=== PATIENT | female | born 1955 | race Caucasian/White ===

== ENCOUNTER 2016-05-14 06:56 | Day surgery (SDC) | payer OTHER ==
[2016-05-09 13:39] VITALS: BMI 48.3
[~2016-05-14 06:56] MED LIST: LACTATED RINGERS 1,000 ML IV SCH; LIDOCAINE 1% 20 ML VIAL (10MG/ML) FOR IV START INTRADERMA PRN
[2016-05-14 07:16] VITALS: RESP 18; TEMP 97.3
[2016-05-14] MEDS ORDERED: LACTATED RINGERS 1,000 ML IV ONE (07:18)
[2016-05-14 07:28] LABS: Glucose,Whole Blood 123 mg/dL (75-99)
[2016-05-14] MEDS ORDERED: PROPOFOL 10 MG/ML 20 ML VIAL IV ONE (07:40)
--- NOTE | 2016-05-14 07:46 | P.GSHP ---
History of Present Illness H&P Date: 05/14/16 Chief Complaint: Screening colonoscopy This is a 52-year-old female who presents today for screening colonoscopy. She' s never had a colonoscopy performed before. She denies any significant GI complaints. - Constitutional Constitutional: Reports as per HPI Past Medical History Past Medical History: Diabetes Mellitus, Hyperlipidemia, Hypertension, Thyroid Disorder Additional Past Medical History / Comment(s): degenerative disc disease, pinched nerve in neck radiating down back, neuropathy hands, pt states has spot on her kidney that is being monitored History of Any Multi-Drug Resistant Organisms: None Reported Past Surgical History: Orthopedic Surgery Additional Past Surgical History / Comment(s): lt knee surgery Past Anesthesia/Blood Transfusion Reactions: No Reported Reaction Smoking Status: Former smoker Past Alcohol Use History: None Reported Additional Past Alcohol Use History / Comment(s): smoked 20 years <1ppd quit 20 years ago Past Drug Use History: None Reported - Past Family History Mother Family Medical History: No Reported History Medications and Allergies Home Medications Medication Instructions Recorded Confirmed Type Aspirin [Adult Low Dose Aspirin EC] 81 mg PO DAILY 05/09/16 05/09/16 History Gabapentin 600 mg PO TID 05/09/16 05/09/16 History Levothyroxine Sodium [Synthroid] 125 mcg PO DAILY 05/09/16 05/09/16 History Losartan [Cozaar] 50 mg PO DAILY 05/09/16 05/09/16 History Simvastatin [Zocor] 20 mg PO HS 05/09/16 05/09/16 History metFORMIN HCL 1,000 mg PO BID 05/09/16 05/09/16 History Allergies Allergy/AdvReac Type Severity Reaction Status Date / Time No Known Allergies Allergy Verified 05/09/16 13:12 Surgical - Exam Vital Signs Temp Pulse Resp BP Pulse Ox 97.3 F L 100 18 152/96 94 L 05/14/16 07:15 05/14/16 07:15 05/14/16 07:15 05/14/16 07:15 05/14/16 07:15 - General well developed, no distress - Eyes PERRL - ENT normal pinna - Neck no masses - Respiratory normal expansion - Cardiovascular Rhythm: regular - Abdomen Abdomen: soft, non tender Results - Labs Abnormal Lab Results - Last 24 Hours (Table) 05/14/16 Range/Units 07:18 POC Glucose (mg/dL) 123 H (75-99) mg/dL Assessment and Plan Plan: We'll perform screening colonoscopy.
--- NOTE | 2016-05-14 08:00 | P.OP ---
Date of Procedure: 05/14/16 Preoperative Diagnosis: Screening colonoscopy Postoperative Diagnosis: Mild diverticulosis Right colon submucosal lipoma Procedure(s) Performed: Colonoscopy Anesthesia: MAC Surgeon: Stewart Castellanos Pathology: other (Right colon lipoma) Condition: stable Disposition: PACU Description of Procedure: The patient's placed on the endoscopy table lateral position. She received IV sedation. Digital rectal exam was performed which revealed no abnormalities. The flexible colonoscope was then placed patient anus and passed throughout the entire colon. The ileocecal valve was visualized. The cecum appeared normal. In the right colon there was a small submucosal lipoma. This area is biopsied. The remainder of the right colon appeared normal. The transverse colon was normal. Scope was then brought back and the descending and sigmoid colon and there was a few scattered diverticula. Scope was then brought back the rectum and this appeared normal. Scope was withdrawn for patient.
[2016-05-14 08:43] VITALS: BP 136/91; PULSE 70
== END 2016-05-14 08:48 | disposition home or self-care (01) ==
LOC: ORWHC2ENDO 06:56
PROVIDERS: ATTEND Surgery
DX: Z12.11 Encounter for screening for malignant neoplasm of colon (principal); D17.5 Benign lipomatous neoplasm of intra-abdominal organs; K57.30 Diverticulosis of large intestine without perforation or abscess without bleeding; I10 Essential (primary) hypertension; E11.9 Type 2 diabetes mellitus without complications; E07.9 Disorder of thyroid, unspecified; G62.9 Polyneuropathy, unspecified; E66.01 Morbid (severe) obesity due to excess calories; Z79.84 Long term (current) use of oral hypoglycemic drugs; Z79.82 Long term (current) use of aspirin; Z79.899 Other long term (current) drug therapy; Z87.891 Personal history of nicotine dependence
CPT/HCPCS: 88305; 45380; J2704

== ENCOUNTER → 2017-04-22 | Outpatient (CLI) | payer OTHER ==
[2017-04-22 15:58] LABS: Blood Urea Nitrogen 19 mg/dL (7-17)
--- NOTE | 2017-04-22 23:10 | MR ---
EXAMINATION TYPE: MR cande/lspine wo con DATE OF EXAM: 04/22/2017 COMPARISON: NONE HISTORY: Cervicalgia and lumbago per order. Headaches with pain into shoulders and neck causing pain or weakness in both arms and fingers for 2 years per patient. Low back pain that travels down legs fo r over 3 years per patient. TECHNIQUE: Multiplanar, multisequence imaging of the cervical and lumbar spine are both performed wit hout IV contrast. FINDINGS: C-SPINE: FINDINGS: Sagittal images of the cervical spine show the craniocervical junction to appear within nor mal limits. The cervical and upper thoracic spinal cord is normal in course, caliber, and signal. Th ere is generalized AP diameter canal narrowing noted presumed congenital. Vertebral alignment is str aightened. The vertebral body heights are normal. There is mild to moderate disc space narrowing C4- C5 and C5-C6 levels. Posterior disc herniation C6-C7 level most probably effaces anterior thecal sac and sagittal images. Some heterogeneous Modic type II endplate changes are seen anterior lower cervic al levels with mild anterior spurring. Axial images show the C2-C3 level to appear within normal limits. Axial images at C3-C4 level broad-based spur disc complex mildly effacing anterior thecal sac and cau sing mild to moderate left greater than right neural foraminal narrowing. Axial images at C4-C5 level showed broad based right paracentral disc protrusion effacing anterolater al thecal sac nearly up to ventral surface of spinal cord with some uncovertebral facet arthropathy c ausing moderate to advanced bilateral neural foraminal narrowing. Axial images at C5-C6 level show lobulated broad-based paracentral disc protrusion facing anterior th ecal sac and causing advanced bilateral neural foraminal narrowing. Axial images at C6-C7 level show broad-based right paracentral disc protrusion effacing the anterior thecal sac and causing mild to moderate right greater than left neural foraminal narrowing. Axial images at C7-T1 level are felt within normal limits. IMPRESSION: Straightening of cervical spine with multilevel degenerative changes seen as detailed abo ve. L-SPINE: Sagittal images of the lumbar spine show vertebral body heights and alignment to appear satisfactory. Multilevel disc desiccation is seen. There is vacuum disc phenomenon with mild to moderate disc spac e narrowing L2-L3 level. There is moderate to advanced disc space narrowing with vacuum disc phenome non L4-L5 and L5-S1 levels. Posterior disc herniations are seen at these levels on sagittal images. T here is increased signal posteriorly consistent with annular tear L3-L4 level. The conus medullaris i s normal in position and signal ending at mid L1 level. There are heterogeneous endplate changes lowe r lumbar levels as well as anterior and posterior L2-L3 level. There is mild to moderate multilevel a nterior spurring. Axial images show the T12-L1 level to appear within normal limits. Axial images at the L1-L2 level shows small right foraminal disc protrusion but the bilateral neural foramina are patent. Spinal canal is preserved. Axial images at L2-L3 level show mild facet degenerative changes bilaterally with bilateral foraminal disc protrusions causing mild to moderate bilateral neural foraminal narrowing. Axial images at L3-L4 level broad-based posterior disc protrusion and mild facet degenerative changes bilaterally. There is mild bilateral neural foraminal narrowing and mild effacement of anterior thec al sac. Axial images at L4-L5 level shows moderate facet degenerative changes and ligament hypertrophy. There is broad-based posterior disc protrusion effacing anterior thecal sac. There is severe right and mil d to moderate left-sided neural foraminal narrowing. Encroachment on right L4 nerve is seen sagittal image 9. Axial images at L5-S1 level show moderate to advanced facet degenerative changes bilaterally. There i s focal right paracentral disc protrusion. There is mild bilateral anterior inferior neural foraminal narrowing. No suspicious retroperitoneal findings are seen. IMPRESSION: Straightening of lumbar spine with multilevel degenerative changes as detailed above. Att ention to L4-L5 level where encroachment on right L4 nerve is felt present.
--- NOTE | 2017-04-22 23:11 | MR ---
EXAMINATION TYPE: MR brain wo/w con DATE OF EXAM: 04/22/2017 COMPARISON: NONE HISTORY: Headache unusual duration per order. Recurring migraine headaches with right-sided hearing l oss per patient. TECHNIQUE: Multiplanar, multisequence images of the brain and brainstem is performed without and with IV contras t, utilizing 12.5 mL intravenous Gadavist . FINDINGS: Diffusion weighted images demonstrate no evidence of a recent infarct or other diffusion ab normality. There is no extra-axial fluid collection or significant white matter signal abnormality. The ventricular system and cisternal spaces are normal in size and appearance. The brain volume is age appropriate. Midline structures demonstrate normal morphology. The craniocervical junction appears within normal limits. Post contrast images demonstrate no abnormal enhancement. The dural venous sinuses appear pa tent. The visualized sinuses are clear and the globes are intact. IMPRESSION: Unremarkable study. No significant finding is seen to account for patient's symptoms.
== END | disposition home or self-care (01) ==
LOC: RADMRIMAIN 15:13
PROVIDERS: ATTEND Psychiatry & Neurology Pain Medicine
DX: M47.816 Spondylosis without myelopathy or radiculopathy, lumbar region (principal); M40.56 Lordosis, unspecified, lumbar region; M47.812 Spondylosis without myelopathy or radiculopathy, cervical region; R51 Headache
CPT/HCPCS: 82565; 84520; 70553; 72141; 72148; 36415; A9581

== ENCOUNTER → 2017-09-29 | Outpatient (CLI) | payer OTHER ==
--- NOTE | 2017-09-30 13:40 | MM ---
Reason for exam: screening (asymptomatic). History: Patient is nulliparous. Physical Findings: A clinical breast exam by your physician is recommended on an annual basis and results should be correlated with mammographic findings. MG Screening Mammo w CAD Bilateral CC and MLO view(s) were taken. No prior studies available for comparison. There are scattered fibroglandular densities. There is no discrete abnormality. No significant changes when compared with prior studies. ASSESSMENT: Negative, BI-RAD 1 RECOMMENDATION: Routine screening mammogram of both breasts in 1 year.
== END | disposition home or self-care (01) ==
LOC: RADMAMWWP 08:00
PROVIDERS: ATTEND Internal Medicine
DX: Z12.31 Encounter for screening mammogram for malignant neoplasm of breast (principal)
CPT/HCPCS: 77067

== ENCOUNTER → 2018-09-30 | Outpatient (CLI) | payer OTHER ==
--- NOTE | 2018-09-30 10:27 | XR ---
EXAMINATION TYPE: XR chest 2V DATE OF EXAM: 09/30/2018 COMPARISON: NONE HISTORY: Chest pain TECHNIQUE: Frontal and lateral views of the chest are obtained. FINDINGS: There is no focal air space opacity. No evidence for pneumothorax. No pleural effusion. The cardiac silhouette size is within normal limits. The osseous structures are grossly intact. IMPRESSION: 1. No acute cardiopulmonary process.
== END | disposition home or self-care (01) ==
LOC: RADXRMAIN 10:07
PROVIDERS: ATTEND Internal Medicine
DX: R06.02 Shortness of breath (principal)
CPT/HCPCS: 71046

== ENCOUNTER → 2018-10-23 | Outpatient (CLI) | payer OTHER ==
--- NOTE | 2018-10-23 13:35 | US ---
EXAMINATION TYPE: US venous doppler duplex LE DATE OF EXAM: 10/23/2018 1:13 PM COMPARISON: NONE CLINICAL HISTORY: M79.662,M79.661 PAIN NATHANIEL LOWER EXTREMITIES. Charly horses in bilateral calfs SIDE PERFORMED: Bilateral TECHNIQUE: The lower extremity deep venous system is examined utilizing real time linear array sonog ernesto with graded compression, doppler sonography and color-flow sonography. VESSELS IMAGED: External Iliac Vein (EIV) Common Femoral Vein Deep Femoral Vein Greater Saphenous Vein * Femoral Vein Popliteal Vein Small Saphenous Vein * Proximal Calf Veins (* superficial vessels) Grayscale, color doppler, spectral doppler imaging performed of the deep veins of the lower extremiti es. There is normal flow, compressibility, vascular waveforms. Right Leg: Negative for DVT Left Leg: Negative for DVT IMPRESSION: No sonographic evidence of deep venous thrombosis within either lower extremity.
== END | disposition home or self-care (01) ==
LOC: RADUSWWP 12:39
PROVIDERS: ATTEND Internal Medicine
DX: M79.661 Pain in right lower leg (principal); M79.662 Pain in left lower leg
CPT/HCPCS: 93970

== ENCOUNTER → 2018-11-03 | Outpatient (CLI) | payer OTHER ==
--- NOTE | 2018-11-04 08:31 | ECHOF ---
Referral Reason:R06.02 Shortness of Breath MEASUREMENTS -------- HEIGHT: 160.0 cm WEIGHT: 112.0 kg BP: RVIDd: 3.0 cm (< 3.3) IVSd: 1.2 cm (0.6 - 1.1) LVIDd: 4.4 cm (3.9 - 5.3) LVPWd: 1.2 cm (0.6 - 1.1) IVSs: 1.7 cm LVIDs: 2.7 cm LVPWs: 1.7 cm LAESV Index (A-L): 23.20 ml/m Ao Diam: 2.9 cm (2.0 - 3.7) AV Cusp: 1.9 cm (1.5 - 2.6) LA Diam: 4.2 cm (2.7 - 3.8) EPSS: 0.6 cm MV E Cornell: 0.79 m/s MV DecT: 166 ms MV A Cornell: 0.88 m/s MV E/A Ratio: 0.90 RAP: 5.00 mmHg RVSP: 43.06 mmHg MV EF SLOPE: 130.66 mm/s (70 - 150) MV EXCURSION: 1.59 cm (> 18.000) FINDINGS -------- Sinus rhythm. This was a technically adequate study. The left ventricular size is normal. There is mild concentric left ventricular hypertrophy. Overa ll left ventricular systolic function is normal with, an EF between 55 - 60 %. The diastolic fillin g pattern is normal for the age of the patient. The right ventricle is normal in size. Left atrium is normal size by volume. The right atrial size is normal. Interatrial and interventricular septum intact. There is no evidence of aortic regurgitation. There is no evidence of aortic stenosis. There is trace mitral regurgitation. [id number] tricuspid regurgitation present. There is moderate pulmonary hypertension. The r ight ventricular systolic pressure, as measured by Doppler, is 43.06mmHg. Trace/mild (physiologic) pulmonic regurgitation. The aortic root size is normal. The inferior vena cava is mildly dilated. There is no pericardial effusion. CONCLUSIONS -------- 1. Sinus rhythm. 2. This was a technically adequate study. 3. The left ventricular size is normal. 4. There is mild concentric left ventricular hypertrophy. 5. Overall left ventricular systolic function is normal with, an EF between 55 - 60 %. 6. The diastolic filling pattern is normal for the age of the patient. 7. The right ventricle is normal in size. 8. Left atrium is normal size by volume. 9. The right atrial size is normal. 10. Interatrial and interventricular septum intact. 11. There is no evidence of aortic regurgitation. 12. There is no evidence of aortic stenosis. 13. There is trace mitral regurgitation. 14. Wkmd-pt-cgosobwz tricuspid regurgitation present. 15. There is moderate pulmonary hypertension. 16. The right ventricular systolic pressure, as measured by Doppler, is 43.06mmHg. 17. Trace/mild (physiologic) pulmonic regurgitation. 18. The aortic root size is normal. 19. The inferior vena cava is mildly dilated. 20. There is no pericardial effusion. LIVING COACH: Madina Soares RDCS
== END | disposition home or self-care (01) ==
LOC: RADECHMAIN 16:03
PROVIDERS: ATTEND Internal Medicine
DX: I07.1 Rheumatic tricuspid insufficiency (principal); I27.20 Pulmonary hypertension, unspecified; I37.1 Nonrheumatic pulmonary valve insufficiency
CPT/HCPCS: 93306

== ENCOUNTER → 2019-12-31 | Outpatient (CLI) | payer OTHER ==
--- NOTE | 2019-12-31 17:34 | BD ---
EXAMINATION TYPE: Axial Bone Density DATE OF EXAM: 12/31/2019 COMPARISON: NONE CLINICAL HISTORY: 64 YR OLD FEMALE.....ICD-10 CODE: N95.1 POST MENOPAUSE Height: 61.2 Weight: 245 FRAX RISK QUESTIONS: Secondary Osteoporosis: YES 3. Menopause before 45: YES RISK FACTORS HISTORY OF: Postmenopausal woman: YES, IN HER EARLY 30s Hyperparathyroidism: NO Adrenal Insufficiency: NO MEDICATIONS: Thyroid Medications: YES, SYNTHROID FOR ABOUT 20+ YRS Additional Medications: BP MEDS, ZANAFLEX, ORAL DIABETIC MEDS, REFLUX MEDS, STATIN FOR CHOLESTEROL, VIT D Additional History: HYPERTENSION, DIABETIC, REFLUX, CHOLESTEROL EXAM MEASUREMENTS: Bone mineral densitometry was performed using the [employer] System. Bone mineral density as measured about the Lumbar spine is: ----- L1-L4(G/cm2): 1.615 T Score Values are as follows: ----- L1: 2.0 ----- L2: 4.1 ----- L3: 3.7 ----- L4: 4.5 ----- L1-L4: 3.6 Bone mineral density FIRST BONE DENSITY.......BASELINE STUDY Bone mineral density about the R hip (g/cm2): 1.164 Bone mineral density about the L hip (g/cm2): 1.232 T Score values are as follows: -----R Neck: 0.6 -----L Neck: 0.6 -----R Total: 1.2 -----L Total: 1.8 Bone mineral density FIRST BONE DENSITY........BASELINE FRAX%s: THERE IS A 5.0% CHANCE FOR A MAJOR OSTEOPOROTIC FX AND 0.1% FOR HIP.....PROBABILITY FOR F RACTURE IN 10 YRS TIME IMPRESSION: Normal (Values between +1 and -1 indicate normal bone mass). Consider repeating this study in 5 year s or sooner if there is some new clinical indication. NOTE: T-SCORE=SD OF THE YOUNG ADULT MEAN.
--- NOTE | 2020-01-04 08:19 | MM ---
Reason for exam: screening (asymptomatic). Last mammogram was performed 2 years and 3 months ago. History: Patient is nulliparous. Physical Findings: A clinical breast exam by your physician is recommended on an annual basis and results should be correlated with mammographic findings. MG Screening Mammo w CAD Bilateral CC and MLO view(s) were taken. Prior study comparison: September 29, 2017, bilateral MG screening mammo w CAD. There are scattered fibroglandular densities. Stable small grouped calcifications left medially. No significant changes when compared with prior studies. ASSESSMENT: Benign, BI-RAD 2 RECOMMENDATION: Routine screening mammogram of both breasts in 1 year.
== END | disposition home or self-care (01) ==
LOC: RADMAMWWP 13:49
PROVIDERS: ATTEND Internal Medicine
DX: Z12.31 Encounter for screening mammogram for malignant neoplasm of breast (principal); N95.1 Menopausal and female climacteric states
CPT/HCPCS: 77067; 77080

== ENCOUNTER → 2021-02-15 | Outpatient (CLI) | payer OTHER ==
--- NOTE | 2021-02-19 10:38 | MM ---
Reason for exam: screening (asymptomatic). Last mammogram was performed 1 year and 2 months ago. History: Patient is nulliparous. Physical Findings: A clinical breast exam by your physician is recommended on an annual basis and results should be correlated with mammographic findings. MG Screening Mammo w CAD Bilateral CC and MLO view(s) were taken. Prior study comparison: December 31, 2019, bilateral MG screening mammo w CAD. September 29, 2017, bilateral MG screening mammo w CAD. The breast tissue is almost entirely fat. Finding: There are grouped/clustered calcifications in the upper inner quadrant of the right breast. No significant changes in finding since December 31, 2019 and September 29, 2017. ASSESSMENT: Benign, BI-RAD 2 RECOMMENDATION: Routine screening mammogram of both breasts in 1 year.
== END | disposition home or self-care (01) ==
LOC: RADMAMWWP 13:49
PROVIDERS: ATTEND Internal Medicine
DX: Z12.31 Encounter for screening mammogram for malignant neoplasm of breast (principal)
CPT/HCPCS: 77067

== ENCOUNTER → 2022-02-13 | Outpatient (CLI) | payer OTHER ==
--- NOTE | 2022-02-13 12:11 | FL ---
EXAMINATION TYPE: FL barium swallow w video DATE OF EXAM: 02/13/2022 MODIFIED SWALLOW / DEGLUTITION STUDY CLINICAL HISTORY: Dysphagia. Food sticking. Coughing after eating/drinking. TECHNIQUE: Deglutition study is performed utilizing thin liquid barium, honey and nectar thick liqui d barium, barium thick applesauce, and barium coated cracker. 42 seconds of fluoro time and 0 images obtained. COMPARISON: None. FINDINGS: The oral and pharyngeal phases show satisfactory initiation and propagation with all modali ties tested. Normal mastication is seen with solid modalities tested. There is no evidence of penet ration or aspiration with any modality tested. No significant pharyngeal residue was appreciated. IMPRESSION: No penetration or aspiration observed. Please refer to speech therapist notes for furthe r details if necessary.
== END | disposition home or self-care (01) ==
LOC: RADFLMAIN 10:56
PROVIDERS: ATTEND Psychiatry & Neurology Neurology
DX: R13.10 Dysphagia, unspecified (principal)
CPT/HCPCS: 74230

== ENCOUNTER → 2022-02-18 | Outpatient (CLI) | payer OTHER ==
--- NOTE | 2022-02-19 09:29 | MM ---
Reason for Exam: Screening (asymptomatic). Last screening mammogram was performed 12 month(s) ago. Patient History: Menarche at age 9. Patient has no children. Risk Values: Nathalia 5 year model risk: 2.0%. NCI Lifetime model risk: 7.9%. Prior Study Comparison: 09/29/2017 Bilateral Screening Mammogram, [facility]. 12/31/2019 Bilateral Screening Mammogram, [facility]. 02/15/2021 Bilateral Screening Mammogram, [facility]. Tissue Density: The breast tissue is heterogeneously dense. This may lower the sensitivity of mammography. Findings: Analyzed By CAD. There is no suspicious group of microcalcifications or new suspicious mass in either breast. Overall Assessment: Benign, BI-RAD 2 Management: Screening Mammogram of both breasts in 1 year. A clinical breast exam by your physician is recommended on an annual basis and results should be correlated with mammographic findings. Electronically signed and approved by: Franco Lino M.D. Radiologis
== END | disposition home or self-care (01) ==
LOC: RADMAMWWP 10:53
PROVIDERS: ATTEND Internal Medicine
DX: Z12.31 Encounter for screening mammogram for malignant neoplasm of breast (principal)
CPT/HCPCS: 77067

== ENCOUNTER → 2022-08-22 | Outpatient (CLI) | payer OTHER ==
[~2022-08-22] MED LIST changes: -LACTATED RINGERS 1,000 ML IV SCH; -LIDOCAINE 1% 20 ML VIAL (10MG/ML) FOR IV START INTRADERMA PRN; +REGADENOSON 0.4 MG/5 ML SYRINGE IV PRN
--- NOTE | 2022-08-22 12:13 | CA ---
Lexiscan Nuclear Stress Test Report Name: Kecia Scott Exam Date: 08/22/2022 10:07 Exam Location: [facility] Ht (in): 63 Wt (lb): 260 BSA: 2.16 Ordering Phys: Hiral Isabel MD Referring Phys: GHAZALA, Technologist: Brant Razo Age: 66 Gender: F : 1955 Procedure CPT: Indications: R07.9 CHEST PAIN ICD-10 Codes: Patient History: Medications: Meds past 24 hrs: Pretest Chest Pain: STRESS TEST Lexiscan Protocol Exercise Duration (min:sec): 02:[address] Depressions (mm): Angina Score: Del Real Score: Resting HR (bpm): 56 Peak HR (bpm): 92 Resting BP (mmHg): 112 / 61 Peak BP (mmHg): 123 / 73 MPHR: 156 Target HR: 133 % MPHR: 59 METS: 1.0 Total Dose: Peak Dose: Atropine: Double Product: 41538 BP Response: Stress Termination: PROTOCOL COMPLETE Stress Symptoms: CHEST TIGHTNESS Stress Summary: ECG ANALYSIS Resting ECG: Sinus rhythm. Normal conduction. No arrhythmias. Normal repolarization. Stress ECG: No ECG changes from baseline with Lexiscan infusion. CONCLUSIONS No ECG evidence of ischemia with Lexiscan infusion. Nuclear test results to follow. Dr. Hiral Isabel MD (Electronically Signed) Final Date: 22 August 2022 12:12
--- NOTE | 2022-08-23 08:24 | NM ---
EXAMINATION TYPE: NM stress lexiscan cardiolite DATE OF EXAM: 08/22/2022 COMPARISON: NONE CLINICAL INDICATION: Female, 66 years old with history of R07.9 CHEST PAIN; TECHNIQUE: After the intravenous administration of 9.2 mCi Tc 99m Sestamibi - Cardiolite resting SPE CT images acquired 45 minutes post injection. The patient received 0.4mg Lexiscan, 26.0 mCi Tc 99m Sestamibi - Stress images obtained [address] injection FINDINGS: Review of stress and rest SPECT images demonstrates fixed perfusion defect along the apical anterolat eral wall. However, this is more pronounced on the rest images. No distinct reversibility is seen. Ga damien analysis shows normal wall motion with an estimated left ventricular ejection fraction of 56 %. TID is calculated at 1.06, within normal limits. IMPRESSION: 1. Fixed defect along the apical anterolateral wall could represent an area of old infarct. At the ar eas larger on rest, a component of attenuation artifact is also possible. Clinically correlate. 2. No suspicious reversibility is identified.
== END | disposition home or self-care (01) ==
LOC: RADNMMAIN 07:56
PROVIDERS: ATTEND Internal Medicine Interventional Cardiology
DX: R07.9 Chest pain, unspecified (principal); R06.09 Other forms of dyspnea
CPT/HCPCS: 93017; 78452; A9500; J2785

== ENCOUNTER → 2023-05-21 | Outpatient (CLI) | payer MEDICARE ==
--- NOTE | 2023-05-21 14:51 | US ---
EXAMINATION TYPE: US pelvic complete DATE OF EXAM: 05/21/2023 COMPARISON: NONE CLINICAL INDICATION: Female, 67 years old with history of N93.9 VAGINAL BLEEDING; Patient states she has noticed blood in her urine and has left sided flank pain. A0. TECHNIQUE: Transabdominal (TA). Transabdominal sonographic images of the pelvis were acquired. EXAM MEASUREMENTS: Uterus: 6.0 x 2.7 x 2.9 cm Endometrial Stripe: 0.57 cm 1. Uterus: Anteverted Limited evaluation 2. Endometrium: limited evaluation 3. Right Ovary: Obscured by overlying bowel gas 4. Left Ovary: Obscured by overlying bowel gas 5. Bilateral Adnexa: appears wnl 6. Posterior cul-de-sac: wnl Patient declined transvaginal exam. Suboptimal transabdominal exam. IMPRESSION: 1. Markedly limited evaluation due to the transabdominal only technique. 2. Thickened endometrial stripe for a bleeding postmenopausal patient and a [facility] consult is recommende d for further evaluation to exclude endometrial carcinoma. Please note it is limited in evaluation as this is only done transabdominally. 3. Ovaries were not seen.
--- NOTE | 2023-05-25 23:59 | MM ---
Reason for Exam: Screening (asymptomatic). Last mammogram was performed 1 year(s) and 3 month(s) ago. Patient History: Menarche at age 9. Patient has no children. Postmenopausal. Risk Values: Nathalia 5 year model risk: 2.0%. NCI Lifetime model risk: 7.6%. Prior Study Comparison: 12/31/2019 Bilateral Screening Mammogram, [facility]. 02/15/2021 Bilateral Screening Mammogram, [facility]. 02/18/2022 Bilateral MG screening mammo w CAD, [facility]. Tissue Density: There are scattered areas of fibroglandular density. Findings: Analyzed By CAD. Unchanged bilateral asymmetric densities. Unchanged grouped calcifications inner posterior left breast. There is no suspicious group of microcalcifications or new suspicious mass in either breast. Overall Assessment: Benign, BI-RAD 2 Management: Screening Mammogram of both breasts in 1 year. . Patient should continue monthly self-breast exams. A clinical breast exam by your physician is recommended on an annual basis. This exam should not preclude additional follow-up of suspicious palpable abnormalities. Note on Nathalia scores and lifetime risk: 1. A Nathalia score greater than 3% is considered moderate risk. If this is the case, consider specialist referral to assess eligibility for a risk reducing agent. 2. If overall lifetime risk for the development of breast cancer is 20% or higher, the patient may qualify for future screening with alternating mammogram and breast MRI. Electronically signed and approved by: Brian Zamorano M.D. Radiologist
== END | disposition home or self-care (01) ==
LOC: RADMAMWWP 14:09
PROVIDERS: ATTEND Internal Medicine
DX: Z12.31 Encounter for screening mammogram for malignant neoplasm of breast (principal); N93.9 Abnormal uterine and vaginal bleeding, unspecified; R93.89 Abnormal findings on diagnostic imaging of other specified body structures; R31.9 Hematuria, unspecified; R10.9 Unspecified abdominal pain; Z78.0 Asymptomatic menopausal state
CPT/HCPCS: 76856; 77067

== ENCOUNTER → 2023-06-13 | Outpatient (CLI) | payer MEDICARE ==
[2023-06-13 15:53] LABS: Basophils # (A) 0.04 X 10*3/uL (0.00-0.10); Basophils % (A) 0.6 %; Eosinophils # (A) 0.24 X 10*3/uL (0.04-0.35); Eosinophils % (A) 3.6 %; HCT 33.9 % (37.2-46.3); HGB 10.5 g/dL (12.0-15.0); Lymphocytes # (A) 2.78 X 10*3/uL (0.90-5.00); Lymphocytes % (A) 41.6 %; MCH 28.8 pg (27.0-32.0); MCV 93.1 FL (80.0-97.0); Mean Platelet Volume 12.2 FL (9.5-12.2); Monocytes # (A) 0.43 X 10*3/uL (0.20-1.00); Monocytes % (A) 6.4 %; NRBC Per 100 WBC 0 X 10*3/uL (0.00-0.01); Neutrophils # (A) 3.19 X 10*3/uL (1.80-7.70); Neutrophils % (A) 47.7 %; Platelet Count 251 X 10*3/uL (140-440); RBC 3.64 X 10*6/uL (4.10-5.20); RDW 14.3 % (11.5-14.5); WBC 6.69 X 10*3/uL (4.50-10.00)
== END | disposition home or self-care (01) ==
LOC: LABPAT 12:00
PROVIDERS: ATTEND Obstetrics & Gynecology
DX: Z01.812 Encounter for preprocedural laboratory examination (principal); N95.0 Postmenopausal bleeding; N88.2 Stricture and stenosis of cervix uteri
CPT/HCPCS: 36415; 85025

== ENCOUNTER 2023-07-03 08:50 | Day surgery (SDC) | payer MEDICARE, OTHER ==
[2023-07-02 10:18] VITALS: BMI 42.0
[~2023-07-03 08:50] MED LIST changes: +Pre Op ABX Message 1 EACH MISC MISCELLANE ONE; -REGADENOSON 0.4 MG/5 ML SYRINGE IV PRN
[2023-07-03] MEDS: LACTATED RINGERS 1,000 ML IV ONE ×2 (09:17→10:54)
[2023-07-03 09:27] VITALS: TEMP 97.1
[2023-07-03 09:44] LABS: Glucose,Whole Blood 86 mg/dL (70-110)
[2023-07-03] MEDS ORDERED: ONDANSETRON 4 MG/2 ML VIAL ONE (09:44)
[2023-07-03] MEDS: ONDANSETRON 4 MG/2 ML VIAL IVP ONE (09:44)
[2023-07-03] MEDS: DEXAMETHASONE SOD PHOSPHATE 4 MG/ML 1 ML VIAL IVP ONE (09:45)
[2023-07-03] MEDS ORDERED: MIDAZOLAM 2 MG/2 ML VIAL ONE (10:51)
[2023-07-03] MEDS ORDERED: KETOROLAC 15 MG/ML 1 ML VIAL ONE (10:51)
[2023-07-03] MEDS ORDERED: PROPOFOL 10 MG/ML 20 ML VIAL IV ONE (10:51)
[2023-07-03] MEDS ORDERED: fentaNYL (PF) 50 MCG/ML 2 ML AMP ONE (10:51)
[2023-07-03] MEDS ORDERED: LIDOCAINE 1% INJ 10MG/ML (20 ML MDV) ONE (10:51)
[2023-07-03] MEDS: SORBITOL 3% IRRIGATION 3,000 ML IRRIGATION ONE (11:10)
[2023-07-03] MEDS ORDERED: METOCLOPRAMIDE 5 MG/ML 2 ML VIAL IVP PRN (11:22)
[2023-07-03] MEDS ORDERED: ONDANSETRON 4 MG/2 ML VIAL IVP PRN (11:22)
[2023-07-03] MEDS ORDERED: IBUPROFEN 600 MG TAB PO PRN (11:22)
[2023-07-03] MEDS ORDERED: Acetaminophen-Codeine 300-30mg TAB PO PRN ×2 (11:22)
[2023-07-03] MEDS ORDERED: SIMETHICONE 80 MG CHEWABLE PO PRN (11:22)
[2023-07-03] MEDS ORDERED: diphenhydrAMINE 50 MG/ML 1 ML VIAL IVP PRN (11:22)
[2023-07-03] MEDS ORDERED: KETOROLAC 15 MG/ML 1 ML VIAL IVP PRN (11:22)
--- NOTE | 2023-07-03 11:28 | P.OP ---
Date of Procedure: 07/03/23 Preoperative Diagnosis: #1. Postmenopausal bleeding #2. Cervical stenosis Postoperative Diagnosis: Same plus #3. Probable endometrial polyp Procedure(s) Performed: #1. Diagnostic hysteroscopy #2. Endometrial polypectomy #3. Dilation and curettage Anesthesia: other (General by LMA) Surgeon: Douglas Conner Estimated Blood Loss (ml): 2 IV fluids (ml): 300 Urine output (ml): 20 Pathology: other (Endometrial curettings and probable polyp) Condition: stable Disposition: PACU Operative Findings: Preoperative pelvic examination demonstrated a an atrophic uterus in terms of size found in the midplane and otherwise normal in shape. The adnexa were nonpalpable and without masses. Intraoperatively, the uterus sounded to approximately 8 cm. Using the hysteroscope, a polypoid structure was seen originating in the middle portion of the otherwise atrophic endometrial cavity. The tubal ostia were not seen as they were obscured by the polyp. The polypoid structure appeared to be completely removed with the polyp forceps. During sharp curettage, the typical gritty texture was encountered throughout the entire uterus and there was no significant amount of tissue removed with curettage. The patient is a poor candidate for vaginal hysterectomy should it become necessary. Description of Procedure: The patient was prepped and draped in usual fashion after general anesthesia was administered by the anesthesiologist. A weighted speculum was placed and the bladder was drained of approximately 20 cc of clear pearl urine. The anterior lip of the cervix was grasped with a single-tooth tenaculum and the uterus sounded to approximately 7-1/2 to 8 cm. Serial dilation was carried out to admit the diagnostic hysteroscope which was placed into the uterine cavity and the cavity distended with sorbitol. The findings are as noted above within a polypoid structure noted in the middle to upper portion of the endometrial cavity. The bilateral tubal ostia could not be seen secondary to the angles with the hysteroscope and the view being obscured by the polyp. The cavity was otherwise entirely atrophic in appearance with no other evidence of pathology. The scope was then removed and set aside and a polyp forceps introduced into the endometrial cavity where the endometrial polyp was removed and appeared to be removed in its entirety. Small sharp curette was introduced into the cavity and thorough and circumferential curettage carried out onto a Telfa placed in the vagina. No significant tissue was noted and the typical gritty texture was encountered throughout. The Telfa along with the previously removed polyps were sent together to pathology for evaluation. All instrumentation was removed. There was no ongoing bleeding from the cervix or from the tenaculum site. Estimated blood loss for the case was 2 ml or less. All sponge, instrument, and needle counts were correct. There were no complications. The patient tolerated the procedure well and proceeded to the recovery room in stable condition.
[2023-07-03] MEDS ORDERED: LACTATED RINGERS 1,000 ML IV SCH (11:30)
[2023-07-03 12:14] LABS: Glucose,Whole Blood 95 mg/dL (70-110)
[2023-07-03 12:28] VITALS: BP 143/84; PULSE 63; RESP 16
[2023-07-04] MEDS ORDERED: ACETAMINOPHEN TAB 325 MG TAB PO PRN (11:23)
== END 2023-07-03 12:51 | disposition home or self-care (01) ==
LOC: OR 08:50
PROVIDERS: ATTEND Obstetrics & Gynecology
DX: N84.0 Polyp of corpus uteri (principal); N88.2 Stricture and stenosis of cervix uteri; I10 Essential (primary) hypertension; E78.5 Hyperlipidemia, unspecified; E07.9 Disorder of thyroid, unspecified; E11.9 Type 2 diabetes mellitus without complications; Z87.891 Personal history of nicotine dependence; Z79.890 Hormone replacement therapy; Z79.84 Long term (current) use of oral hypoglycemic drugs; Z79.899 Other long term (current) drug therapy
CPT/HCPCS: 88305; 84132; 58558; J2250; J1100; J2405; J2001; J3010; J1885; J2704

== ENCOUNTER 2023-09-21 11:46 | Inpatient (IN) | payer MEDICARE ==
[2023-09-21 12:26] LABS: Basophils % (A) 0 %; Eosinophils # (A) 0.1 k/uL (0-0.7); Eosinophils % (A) 1 %; HCT 36.3 % (34.0-46.0); HGB 11.8 gm/dL (11.4-16.0); Lymphocytes # (A) 1.8 k/uL (1.0-4.8); Lymphocytes % (A) 21 %; MCH 30.6 pg (25.0-35.0); MCHC 32.5 g/dL (31.0-37.0); MCV 94.2 fL (80.0-100.0); Mean Platelet Volume 8.3; Monocytes # (A) 0.3 k/uL (0-1.0); Monocytes % (A) 4 %; Neutrophils # (A) 6.3 k/uL (1.3-7.7); Neutrophils % (A) 73 %; Platelet Count 261 k/uL (150-450); RBC 3.85 m/uL (3.80-5.40); RDW 13.4 % (11.5-15.5); WBC 8.6 k/uL (3.8-10.6)
[2023-09-21] MEDS: KETOROLAC 15 MG/ML 1 ML VIAL IVP STA (12:31)
[2023-09-21] MEDS: MAG HYDROX/AL HYDROX/SIMETH 30 ML, HYOSCYAMINE ELIXIR 10 ML, LIDOCAINE VISCOUS 2% 10 ML PO STA (12:34)
[2023-09-21 12:38] LABS: Partial Thromboplastin Time 23.9 sec (22.0-30.0); Prothrombin Time 10.7 sec (10.0-12.5)
[2023-09-21 12:42] LABS: ALT 13 U/L (4-34); AST 21 U/L (14-36); African American GFR (CKD) 90 (>60 ml/min/1.73 sqM); Alkaline Phosphatase 64 U/L (38-126); Anion Gap 6 mmol/L; Blood Urea Nitrogen 13 mg/dL (7-17); Calcium 9.6 mg/dL (8.4-10.2); Carbon Dioxide 29 mmol/L (22-30); Chloride 104 mmol/L (98-107); Glucose 130 mg/dL (74-99); Lipase 42 U/L (23-300); Magnesium 1.3 mg/dL (1.6-2.3); Non-African American GFR(CKD) 78 (>60 ml/min/1.73 sqM); Potassium 4.4 mmol/L (3.5-5.1); Sodium 139 mmol/L (137-145); Total Bilirubin 0.6 mg/dL (0.2-1.3); Total Protein 6.9 g/dL (6.3-8.2)
[2023-09-21 12:49] LABS: NT-Pro-B-Type Natriuretic Pept 501 pg/mL
--- NOTE | 2023-09-21 12:50 | XR ---
EXAMINATION TYPE: XR chest 2V DATE OF EXAM: 09/21/2023 COMPARISON: 09/30/18 HISTORY: Shortness of breath TECHNIQUE: Frontal and lateral views of the chest are obtained. FINDINGS: Scattered senescent parenchymal changes noted. No evidence for infiltrate. No evidence for atelectasis. Heart size is stable. Mediastinal structures are stable and grossly unremarkable. No evidence for hilar prominence. Degenerative changes dorsal spine. IMPRESSION: 1. No evidence for acute pulmonary disease.
[2023-09-21] MEDS ORDERED: NITROGLYCERIN SL TABS 0.4 MG TAB SUBLINGUAL PRN (13:03)
--- NOTE | 2023-09-21 13:03 | ED ---
Chest Pain HPI - General Chief Complaint: Chest Pain Stated Complaint: Chest Pain Time Seen by Provider: 09/21/23 11:50 Source: patient, RN notes reviewed Mode of arrival: ambulatory Limitations: no limitations - History of Present Illness Initial Comments: 67-year-old female presents emergency department chief complaint of centralized chest pain. Patient states that started earlier. She states that she initially thought it was indigestion yesterday but worsened overnight. Patient states it is nonradiating denies any shortness of breath she does have a history of hypertension hyperlipidemia diabetes she states she sees Dr. Rodriguez. Patient denies any blood thinners she takes a baby aspirin daily. - Related Data Home Medications Medication Instructions Recorded Confirmed Aspirin [Adult Low Dose Aspirin EC] 81 mg PO DAILY 05/09/16 07/03/23 Gabapentin 600 mg PO TID 05/09/16 07/03/23 Losartan [Cozaar] 50 mg PO DAILY 05/09/16 07/03/23 Simvastatin [Zocor] 20 mg PO HS 05/09/16 07/03/23 metFORMIN HCL [Glucophage] 1,000 mg PO BID 05/09/16 07/03/23 Furosemide [Lasix] 20 mg PO DAILY 07/02/23 07/03/23 Levothyroxine Sodium [Synthroid] 112 mcg PO DAILY 07/02/23 07/03/23 Meloxicam [Mobic] 15 mg PO DAILY 07/02/23 07/03/23 Morphine Pain Pump 0 ml INJ CONTINUOUS 07/02/23 07/03/23 Pioglitazone [Actos] 30 mg PO DAILY 07/02/23 07/03/23 Allergies Allergy/AdvReac Type Severity Reaction Status Date / Time No Known Allergies Allergy Verified 07/03/23 09:15 Review of Systems ROS Statement: Those systems with pertinent positive or pertinent negative responses have been documented in the HPI. ROS Other: All systems not noted in ROS Statement are negative. EKG Findings - EKG Comments: EKG Findings:: EKG performed at 11: 57 sinus rhythm with rate of 70 GA 137 QRS 80 QT/QTc 401/422 - EKG Results: EKG: interpreted by MIGUEL ÁNGEL Past Medical History Past Medical History: Diabetes Mellitus, Hyperlipidemia, Hypertension, Thyroid Disorder Additional Past Medical History / Comment(s): degenerative disc disease, pinched nerve in neck radiating down back, neuropathy hands, pt states has spot on her kidney that is being monitored History of Any Multi-Drug Resistant Organisms: None Reported Past Surgical History: Orthopedic Surgery Additional Past Surgical History / Comment(s): lt knee surgery, pain pump Past Anesthesia/Blood Transfusion Reactions: No Reported Reaction Smoking Status: Never smoker Past Alcohol Use History: None Reported - Past Family History Mother Family Medical History: No Reported History Brother(s) Family Medical History: Cancer General Exam Limitations: no limitations Course Vital Signs 09/21/23 11:47 Temperature 98.4 F Pulse Rate 66 Respiratory 16 Rate Blood Pressure 163/80 O2 Sat by Pulse 98 Oximetry Chest Pain MDM - MDM Was pt. sent in by a medical professional or institution (, PA, [employer], urgent care, hospital, or fdc...) When possible be specific @ -[No] Did you speak to anyone other than the patient for history (EMS, parent, family, police, friend...)? What history was obtained from this source @ -[No] Did you review nursing and triage notes (agree or disagree)? Why? @ -[I reviewed and agree with nursing and triage notes] Were old charts reviewed (outside hosp., previous admission, EMS record, old EKG, old radiological studies, urgent care reports/EKG's, fdc records)? Report findings @ -[No old charts were reviewed] Differential Diagnosis (chest pain, altered mental status, abdominal pain women, abdominal pain men, vaginal bleeding, weakness, fever, dyspnea, syncope, headache, dizziness, GI bleed, back pain, seizure, CVA, palpatations, mental he alth, musculoskeletal)? @ -Differential Chest Pain: Stable Angina, Unstable Angina, STEMI, NSTEMI Aortic Dissection, Pneumothorax, Musculoskeletal, Esophageal Spasm GERD, Cholecystitis, Pancreatitis, Zoster, this is not meant to be an all-inclusive list. EKG interpreted by me (3pts min.). @ -[As above] X-rays interpreted by me (1pt min.). @ -[Chest ray shows no acute cardiopulmonary process CT interpreted by me (1pt min.). @ -[None done] U/S interpreted by me (1pt. min.). @ -[None done] What testing was considered but not performed or refused? (CT, X-rays, U/S, labs)? Why? @ -[None] What meds were considered but not given or refused? Why? @ -[None] Did you discuss the management of the patient with other professionals (professionals i.e. , PA, [employer], lab, RT, psych nurse, psych social worker, corporate human resources manager, teacher, ship's electronic warfare officer, nurse case management)? Give summary @ -Dr. Gonzalez for admission Was smoking cessation discussed for >3mins.? @ -[No] Was critical care preformed (if so, how long)? @ -[No] Were there social determinants of health that impacted care today? How? (Homelessness, low income, unemployed, alcoholism, drug addiction, transportation, low edu. Level, literacy, decrease access to med. care, fdc, rehab)? @ -[No] Was there de-escalation of care discussed even if they declined (Discuss DNR or withdrawal of care, Hospice)? DNR status @ -[No] What co-morbidities impacted this encounter? (DM, HTN, Smoking, COPD, CAD, Cancer, CVA, ARF, Chemo, Hep., AIDS, mental health diagnosis, sleep apnea, morbid obesity)? @ -[Hypertension hyperlipidemia diabetes Was patient admitted / discharged? Hospital course, mention meds given and route, prescriptions, significant lab abnormalities, going to OR and other pertinent info. @ -Admitted patient presented for chest pain patient has multiple risk factors initial troponin is negative EKG does not show any acute changes patient be admitted for cardiac observation. Undiagnosed new problem with uncertain prognosis? @ -[No] Drug Therapy requiring intensive monitoring for toxicity (Heparin, Nitro, Insulin, Cardizem)? @ -[No] Were any procedures done? @ -[No] Diagnosis/symptom? @ -Chest pain Acute, or Chronic, or Acute on Chronic? @ -Acute Uncomplicated (without systemic symptoms) or Complicated (systemic symptoms)? @ -Complicated Side effects of treatment? @ -[No] Exacerbation, Progression, or Severe Exacerbation? @ -[No] Poses a threat to life or bodily function? How? (Chest pain, [place], [place], pneumonia, PE, COPD, DKA, ARF, appy, cholecystitis, CVA, Diverticulitis, Homicidal, Suicidal, threat to staff... and all critical care pts) @ -Yes possible ACS, cardiac arrest Disposition Clinical Impression: Chest pain Disposition: ADMITTED IP TO THIS HOSP Condition: Fair Referrals: Carlos Gonzalez MD [Primary Care Provider] - 1-2 days Time of Disposition: 13:02
[2023-09-21] MEDS: MAGNESIUM SULFATE-D5W PMX 1 GM in DEXTROSE/WATER 1 100ML.BAG IVPB SCH (13:04)
[2023-09-21] MEDS: ASPIRIN 81 MG PO STA (13:25)
[2023-09-21] MEDS ORDERED: MECLIZINE 25 MG TAB PO PRN (18:34)
[2023-09-21] MEDS ORDERED: tiZANidine 4 MG TAB PO PRN (18:34)
[2023-09-21] MEDS ORDERED: SUMAtriptan succinate 50 MG TAB PO PRN (18:34)
[2023-09-21] MEDS ORDERED: hydrALAZINE HCL 20 MG/ML 1 ML VIAL IVP PRN (18:36)
[2023-09-21] MEDS: HYDROcodone/APAP 5-325MG 1 EACH TAB PO SCH (19:07)
[2023-09-21] MEDS: LOSARTAN 50 MG TAB PO SCH (19:08)
[2023-09-21] MEDS: GABAPENTIN 300 MG CAP PO SCH (21:14)
[2023-09-22] MEDS: LEVOTHYROXINE 112 MCG TAB PO SCH (06:10)
[2023-09-22] MEDS: DULoxetine HCL 60 MG CAPSULE.DR PO SCH (08:54)
[2023-09-22] MEDS: ASPIRIN 81 MG PO SCH (08:54)
[2023-09-22] MEDS: CHOLECALCIFEROL 25 MCG (1000 IU) TABLET PO SCH (08:54)
[2023-09-22] MEDS: FUROSEMIDE 20 MG TAB PO SCH (08:54)
[2023-09-22] MEDS: ATORVASTATIN 10 MG TAB PO SCH (08:55)
[2023-09-22] MEDS ORDERED: ASPIRIN 325 MG TAB PO SCH (09:00)
[2023-09-22] MEDS: MELOXICAM 7.5 MG TAB PO SCH (09:00)
--- NOTE | 2023-09-22 09:49 | P.HPIM ---
History of Present Illness H&P Date: 09/21/23 Kecia Scott, is a 67-year-old female who presented to [facility] emergency room with a chief complaint of chest pain, she was evaluated in the emergency room and admitted to telemetry floor, serial EKG and cardiac enzymes were ordered, shortly after admission patient started having worsening abdominal pain. She was evaluated in the emergency room vital examination on presentation revealed a temperature of 98.4 pulse 66 respirations 16 blood pressure 163/80 pulse ox 98% on room air Laboratory data reveals a white blood count of 8.6 hemoglobin 11.8 platelet count 261 BUN 13 creatinine 0.8 troponin 0.012 BNP 501 Testing in the emergency room revealed EKG revealed sinus rhythm without acute abnormality, chest x-ray revealed no evidence for acute pulmonary disease Patient was admitted to medical floor for further evaluation and treatment Past Medical History Past Medical History: Diabetes Mellitus, Hyperlipidemia, Hypertension, Thyroid Disorder Additional Past Medical History / Comment(s): degenerative disc disease, pinched nerve in neck radiating down back, neuropathy hands, pt states has spot on her kidney that is being monitored History of Any Multi-Drug Resistant Organisms: None Reported Past Surgical History: Orthopedic Surgery Additional Past Surgical History / Comment(s): lt knee surgery, pain pump Past Anesthesia/Blood Transfusion Reactions: No Reported Reaction Smoking Status: Never smoker Past Alcohol Use History: None Reported - Past Family History Mother Family Medical History: No Reported History Brother(s) Family Medical History: Cancer Medications and Allergies Home Medications Medication Instructions Recorded Confirmed Type Aspirin [Adult Low Dose Aspirin EC] 81 mg PO DAILY 05/09/16 09/21/23 History Gabapentin 600 mg PO TID 05/09/16 09/21/23 History Losartan [Cozaar] 50 mg PO DAILY 05/09/16 09/21/23 History Simvastatin [Zocor] 20 mg PO DAILY 05/09/16 09/21/23 History metFORMIN HCL [Glucophage] 1,000 mg PO BID 05/09/16 09/21/23 History Furosemide [Lasix] 20 mg PO DAILY 07/02/23 09/21/23 History Levothyroxine Sodium [Synthroid] 112 mcg PO DAILY 07/02/23 09/21/23 History Meloxicam [Mobic] 15 mg PO DAILY 07/02/23 09/21/23 History Pioglitazone [Actos] 30 mg PO DAILY 07/02/23 09/21/23 History Cholecalciferol (Vitamin D3) 50 mcg PO DAILY 09/21/23 09/21/23 History [Vitamin D3 (50 Mcg = 2000 Iu)] DULoxetine HCL [Cymbalta] 60 mg PO DAILY 09/21/23 09/21/23 History HYDROcodone/APAP 5-325MG [[place] 1 tab PO DAILY PRN 09/21/23 09/21/23 History 5-325] HYDROcodone/APAP 5-325MG [[place] 1 tab PO HS 09/21/23 09/21/23 History 5-325] Meclizine [Antivert] 25 mg PO TID PRN 09/21/23 09/21/23 History SUMAtriptan succinate [Imitrex] 50 mg PO BID PRN 09/21/23 09/21/23 History tiZANidine [Zanaflex] 4 mg PO BID PRN 09/21/23 09/21/23 History Allergies Allergy/AdvReac Type Severity Reaction Status Date / Time turmeric Allergy Rash/Hives Verified 09/21/23 19:01 Physical Exam Vitals: Vital Signs Temp Pulse Pulse Resp BP BP Pulse Ox 09/21/23 17:46 98.5 F 74 16 170/117 98 09/21/23 17:08 98.3 F 73 18 158/88 98 09/21/23 15:34 70 18 172/90 98 09/21/23 11:47 98.4 F 66 16 163/80 98 Intake and Output 09/21/23 09/21/23 09/21/23 06:59 14:59 22:59 Other: Weight 105.687 kg In general patient is alert and oriented x 3 in no distress HEENT head normocephalic and atraumatic Neck is supple no JVD no goiter no lymphadenopathy no carotid bruit Chest examination is clear to auscultation no crackles no wheezing Cardiac exam reveals regular heart sounds S1 and S2 no gallops no murmurs Abdomen is soft, with mild diffuse tenderness no organomegaly with normal bowel sounds Extremity exam reveals no edema no cyanosis or clubbing Neurological examination reveals no gross focal deficits Results CBC & Chem 7: 09/21/23 12:15 09/21/23 12:15 Labs: Abnormal Lab Results - Last 24 Hours (Table) 09/21/23 Range/Units 12:15 Glucose 130 H (74-99) mg/dL Magnesium 1.3 L (1.6-2.3) mg/dL Assessment and Plan Plan: Episode of chest pain Abdominal pain Underlying history of hypertension Underlying history of hyperlipidemia Underlying history of axl-[id number] diabetes mellitus Underlying history of hypothyroidism Underlying history of peripheral neuropathy Underlying history of migraine headache At this time patient is admitted to telemetry floor Home medications reviewed and reordered, hold metformin for now Serial EKG and cardiac enzymes ordered Cardiology consultation requested In regard to abdominal pain abdomen ultrasound was ordered, amylase lipase ordered, keep n.p.o. for now For DVT prophylaxis subcu Lovenox Will follow closely
[2023-09-22 10:32] LABS: Amylase 46 U/L (30-110); Lipase 42 U/L (23-300)
--- NOTE | 2023-09-22 10:33 | P.CRDCN ---
History of Present Illness History of present illness: HISTORY OF PRESENTING ILLNESS This is a pleasant 67-year-old with past medical history significant for hypertension, hyperlipidemia, obesity. she follows in the office with Dr. Isabel. She has been having 2 days of substernal chest pain at her sternum associated with some upset stomach. She did actually had 2 episodes of nausea and throwing up. Since that time she continues to have mild chest pain. It is reproducible on exam. She admits it is worse if she takes a deep breath in. She denies any recent fevers or chills or cough. She is also being worked up for any GI source. She had Lexiscan stress test 1 year ago which showed fixed defects over no reversible ischemia. Otherwise she states she has been doing fairly well recently and no change in medications. EKG shows normal sinus rhythm without significant ST or T wave abnormalities and troponins negative 3. REVIEW OF SYSTEMS At the time of my exam: CONSTITUTIONAL: Denies fever or chills. CARDIOVASCULAR: +chest pain, shortness of breath, orthopnea, PND or palpitations. RESPIRATORY: Denies cough. GASTROINTESTINAL: Denies abdominal pain, diarrhea, constipation, nausea or vomiting. MUSCULOSKELETAL: Denies myalgias. NEUROLOGIC: Denies numbness, tingling or weakness. ENDOCRINE: Denies fatigue, weight change, polydipsia or polyurina. GENITOURINARY: Denies burning, hematuria or urgency with micturation. HEMATOLOGIC: Denies history of anemia or bleeding. PHYSICAL EXAMINATION Vital signs reviewed. CONSTITUTIONAL: No apparent distress. HEENT: Head is normocephalic. Pupils are equal, round. Sclerae anicteric. Mucous membranes of the mouth are moist. No JVD. No carotid bruit. CHEST EXAMINATION: Lungs are clear to auscultation. +chest wall tenderness is noted on palpation and with deep breathing. HEART EXAMINATION: Regular rate and rhythm. S1, S2 heard. No murmurs, gallops or rub. ABDOMEN: Soft, nontender. Positive bowel sounds. EXTREMITIES: 2+ peripheral pulses, no lower extremity edema and no calf t enderness. NEUROLOGIC EXAMINATION: Patient is awake, alert and oriented x3. ASSESSMENT Atypical chest pain appears more musculoskeletal Nausea, emesis rule out GI source Hypertension Hyperlipidemia Obesity PLAN Patient's chest pain overall is atypical and does not appear cardiac. Troponin is normal. Trial GI cocktail and see if this improves at all.check 2-D echo and if unrevealing and patient feeling better likely discharge home later today. Past Medical History Past Medical History: Diabetes Mellitus, Hyperlipidemia, Hypertension, Thyroid Disorder Additional Past Medical History / Comment(s): degenerative disc disease, pinched nerve in neck radiating down back, neuropathy hands, pt states has spot on her kidney that is being monitored History of Any Multi-Drug Resistant Organisms: None Reported Past Surgical History: Orthopedic Surgery Additional Past Surgical History / Comment(s): lt knee surgery, pain pump Past Anesthesia/Blood Transfusion Reactions: No Reported Reaction Smoking Status: Never smoker Past Alcohol Use History: None Reported - Past Family History Mother Family Medical History: No Reported History Brother(s) Family Medical History: Cancer Medications and Allergies Home Medications Medication Instructions Recorded Confirmed Type Aspirin [Adult Low Dose Aspirin EC] 81 mg PO DAILY 05/09/16 09/21/23 History Gabapentin 600 mg PO TID 05/09/16 09/21/23 History Losartan [Cozaar] 50 mg PO DAILY 05/09/16 09/21/23 History Simvastatin [Zocor] 20 mg PO DAILY 05/09/16 09/21/23 History metFORMIN HCL [Glucophage] 1,000 mg PO BID 05/09/16 09/21/23 History Furosemide [Lasix] 20 mg PO DAILY 07/02/23 09/21/23 History Levothyroxine Sodium [Synthroid] 112 mcg PO DAILY 07/02/23 09/21/23 History Meloxicam [Mobic] 15 mg PO DAILY 07/02/23 09/21/23 History Pioglitazone [Actos] 30 mg PO DAILY 07/02/23 09/21/23 History Cholecalciferol (Vitamin D3) 50 mcg PO DAILY 09/21/23 09/21/23 History [Vitamin D3 (50 Mcg = 2000 Iu)] DULoxetine HCL [Cymbalta] 60 mg PO DAILY 09/21/23 09/21/23 History HYDROcodone/APAP 5-325MG [[place] 1 tab PO DAILY PRN 09/21/23 09/21/23 History 5-325] HYDROcodone/APAP 5-325MG [[place] 1 tab PO HS 09/21/23 09/21/23 History 5-325] Meclizine [Antivert] 25 mg PO TID PRN 09/21/23 09/21/23 History SUMAtriptan succinate [Imitrex] 50 mg PO BID PRN 09/21/23 09/21/23 History tiZANidine [Zanaflex] 4 mg PO BID PRN 09/21/23 09/21/23 History Allergies Allergy/AdvReac Type Severity Reaction Status Date / Time turmeric Allergy Rash/Hives Verified 09/21/23 19:01 Physical Exam Vitals: Vital Signs Temp Pulse Pulse Resp BP BP Pulse Ox 09/22/23 08:54 15 09/22/23 07:00 98.7 F 70 15 106/72 97 09/22/23 02:00 99.1 F 73 16 136/82 96 09/21/23 21:16 64 09/21/23 21:14 98.6 F 64 15 152/78 97 09/21/23 17:46 98.5 F 74 16 170/117 98 09/21/23 17:08 98.3 F 73 18 158/88 98 09/21/23 15:34 70 18 172/90 98 09/21/23 11:47 98.4 F 66 16 163/80 98 Intake and Output 09/21/23 09/22/23 09/22/23 22:59 06:59 14:59 Intake Total 118 Balance 118 Intake: Oral 118 Other: Voiding Method Toilet Toilet # Voids 1 1 Weight 105.687 kg Results 09/21/23 12:15 09/21/23 12:15 Cardiac Enzymes 09/21/23 09/21/23 09/21/23 Range/Units 12:15 12:15 14:54 AST 21 (14-36) U/L Troponin I <0.012 <0.012 (0.000-0.034) ng/mL 09/21/23 Range/Units 17:34 AST (14-36) U/L Troponin I <0.012 (0.000-0.034) ng/mL Coagulation 09/21/23 Range/Units 12:15 PT 10.7 (10.0-12.5) sec APTT 23.9 (22.0-30.0) sec CBC 09/21/23 Range/Units 12:15 WBC 8.6 (3.8-10.6) k/uL RBC 3.85 (3.80-5.40) m/uL Hgb 11.8 (11.4-16.0) gm/dL Hct 36.3 (34.0-46.0) % Plt Count 261 (150-450) k/uL Comprehensive Metabolic Panel 09/21/23 Range/Units 12:15 Sodium 139 (137-145) mmol/L Potassium 4.4 (3.5-5.1) mmol/L Chloride 104 (98-107) mmol/L Carbon Dioxide 29 (22-30) mmol/L BUN 13 (7-17) mg/dL Creatinine 0.80 (0.52-1.04) mg/dL Glucose 130 H (74-99) mg/dL Calcium 9.6 (8.4-10.2) mg/dL AST 21 (14-36) U/L ALT 13 (4-34) U/L Alkaline Phosphatase 64 (38-126) U/L Total Protein 6.9 (6.3-8.2) g/dL Albumin 4.0 (3.5-5.0) g/dL Current Medications Generic Name Dose Route Start Last Admin Trade Name Freq PRN Reason Stop Dose Admin Hydrocodone Bitart/Acetaminophen 1 each 09/21/23 18:34 Hydrocodone/Apap 5-325mg 1 Each Tab PO DAILY PRN Pain Hydrocodone Bitart/Acetaminophen 1 each 09/21/23 21:00 09/21/23 19:07 Hydrocodone/Apap 5-325mg 1 Each Tab PO 1 each HS ALEKSANDRA Administration Aspirin 81 mg 09/22/23 09:00 09/22/23 08:54 Aspirin 81 Mg PO 81 mg DAILY ALEKSANDRA Administration Atorvastatin Calcium 10 mg 09/22/23 09:00 09/22/23 08:55 Atorvastatin 10 Mg Tab PO 10 mg DAILY ALEKSANDRA Administration Cholecalciferol 50 mcg 09/22/23 09:00 09/22/23 08:54 Cholecalciferol 25 Mcg (1000 Iu) Tablet PO 50 mcg DAILY ALEKSANDRA Administration Duloxetine HCl 60 mg 09/22/23 09:00 09/22/23 08:54 Duloxetine Hcl 60 Mg Capsule.Dr PO 60 mg DAILY ALEKSANDRA Administration Furosemide 20 mg 09/22/23 09:00 09/22/23 08:54 Furosemide 20 Mg Tab PO 20 mg DAILY ALEKSANDRA Administration Gabapentin 600 mg 09/21/23 22:00 09/22/23 08:54 Gabapentin 300 Mg Cap PO 600 mg TID [facility] Administration Hydralazine HCl 10 mg 09/21/23 18:36 Hydralazine Hcl 20 Mg/Ml 1 Ml Vial IVP Q4HR PRN Blood Pressure - High Levothyroxine Sodium 112 mcg 09/22/23 06:30 09/22/23 06:10 Levothyroxine 112 Mcg Tab PO 112 mcg 0630 ALEKSANDRA Administration Losartan Potassium 50 mg 09/21/23 18:45 09/22/23 08:55 Losartan 50 Mg Tab PO 50 mg DAILY [facility] Administration Meclizine HCl 25 mg 09/21/23 18:34 Meclizine 25 Mg Tab PO TID PRN Vertigo Meloxicam 15 mg 09/22/23 09:00 Meloxicam 7.5 Mg Tab PO DAILY [facility] Nitroglycerin 0.4 mg 09/21/23 13:03 Nitroglycerin Sl Tabs 0.4 Mg Tab SUBLINGUAL Q5M PRN Chest Pain Pioglitazone HCl 30 mg 09/22/23 09:00 Pioglitazone 30 Mg Tab PO DAILY [facility] Sumatriptan Succinate 50 mg 09/21/23 18:34 Sumatriptan Succinate 50 Mg Tab PO BID PRN Migraine Headache Tizanidine HCl 4 mg 09/21/23 18:34 Tizanidine 4 Mg Tab PO BID PRN Muscle Pain Intake and Output 09/21/23 09/22/23 09/22/23 22:59 06:59 14:59 Intake Total 118 Balance 118 Intake: Oral 118 Other: Voiding Method Toilet Toilet # Voids 1 1 Weight 105.687 kg 09/21/23 12:15 09/21/23 12:15
[2023-09-22 10:53] LABS: Basophils # (A) 0.02 X 10*3/uL (0.00-0.10); Basophils % (A) 0.2 %; Eosinophils # (A) 0.08 X 10*3/uL (0.04-0.35); HCT 33.3 % (37.2-46.3); HGB 10.9 g/dL (12.0-15.0); Lymphocytes # (A) 2.54 X 10*3/uL (0.90-5.00); Lymphocytes % (A) 30.3 %; MCH 30.4 pg (27.0-32.0); MCHC 32.7 g/dL (32.0-37.0); MCV 92.8 FL (80.0-97.0); Monocytes # (A) 0.64 X 10*3/uL (0.20-1.00); Monocytes % (A) 7.6 %; NRBC Per 100 WBC 0 X 10*3/uL (0.00-0.01); Neutrophils # (A) 5.07 X 10*3/uL (1.80-7.70); Neutrophils % (A) 60.5 %; Platelet Count 256 X 10*3/uL (140-440); RBC 3.59 X 10*6/uL (4.10-5.20); RDW 13.5 % (11.5-14.5); WBC 8.38 X 10*3/uL (4.50-10.00)
[2023-09-22 11:05] LABS: ALT 9 U/L (8-44); AST 13 U/L (13-35); Albumin 3.9 g/dL (3.8-4.9); Albumin/Globulin Ratio 1.62 Ratio (1.60-3.17); Alkaline Phosphatase 65 U/L (41-126); Blood Urea Nitrogen 11.5 mg/dL (9.0-27.0); Calcium 9.2 mg/dL (8.7-10.3); Carbon Dioxide 26.1 mmol/L (21.6-31.8); Chloride 102 mmol/L (96-109); Chol/HDL Ratio 2.64 Ratio; Globulin 2.4 g/dL (1.6-3.3); Glucose 107 mg/dL (70-110); LDL Cholesterol,Calculated 68.3 mg/dL (0.0-131.0); Potassium 4.2 mmol/L (3.5-5.5); Sodium 140 mmol/L (135-145); Total Bilirubin 0.5 mg/dL (0.3-1.2); Total Protein 6.3 g/dL (6.2-8.2)
[2023-09-22] MEDS: MAG HYDROX/AL HYDROX/SIMETH 30 ML, HYOSCYAMINE ELIXIR 10 ML, LIDOCAINE VISCOUS 2% 10 ML PO ONE (11:31)
--- NOTE | 2023-09-22 12:05 | US ---
EXAMINATION TYPE: US abdomen comp/pelvis limited DATE OF EXAM: 09/22/2023 COMPARISON: NONE CLINICAL INDICATION: Female, 67 years old with history of Abdominal pain; RUQ pain EXAM MEASUREMENTS: Liver Length: 17.5 cm Gallbladder Wall: .4 cm CBD: .6 cm Spleen: 11.1 cm Right Kidney: 8.8 x 4.7 x 3.9 cm Left Kidney: 9.4 x 4.8 x 4.2 cm Pancreas: Obscured by bowel gas Liver: wnl Gallbladder: Stones seen largest 2.6 cm CBD: upper limits Spleen: wnl Right Kidney: No hydronephrosis or masses seen Left Kidney: No hydronephrosis or masses seen Upper IVC: wnl Abd Aorta: wnl Bladder: not fully distended Bilateral Jets Seen no Under distended urinary bladder without filling defect definitively visualized. Bilateral ureter jets are not visualized. Abdominal aorta and upper IVC appear within normal limits. Both kidneys demonstr ate no hydronephrosis, mass, or nephrolithiasis. Spleen is within normal limits. Common bile duct is at the upper limits of normal for size. Cholelithiasis demonstrated. No wall thickening or surroundin g fluid. Liver is within normal limits. Pancreas is obscured by overlying bowel gas. IMPRESSION: Cholelithiasis without ultrasound evidence for acute cholecystitis.
[2023-09-22] MEDS: IOPAMIDOL CONTRAST (ORAL USE) VIAL PO PRN (14:08)
--- NOTE | 2023-09-22 14:08 | P.GSCN ---
History of Present Illness Consult date: 09/22/23 History of present illness: CHIEF COMPLAINT: Chest pain abdominal pain HISTORY OF PRESENT ILLNESS: This is a 67-year-old female presented the hospital with complaints of chest pain and pain across the upper abdomen that started 2 days ago. She also was having episodes of nausea and vomiting. She is never had symptoms like this before. Denies any prior abdominal surgeries except for the pain pump on the right side of the abdomen for her back pain. Abdominal ultrasound had showed evidence of gallstones. There is also a CT scan abdomen pelvis pending. She was seen by cardiology and symptoms were not cardiac related. PAST MEDICAL HISTORY: Diabetes Mellitus, Hyperlipidemia, Hypertension, Thyroid Disorder, degenerative disc disease PAST SURGICAL HISTORY: Pain pump MEDICATIONS: See below ALLERGIES: See below SOCIAL HISTORY: No illicit drug use. REVIEW OF SYSTEMS: CONSTITUTIONAL: Denies fever or chills. HEENT: Denies blurred vision, vision changes, or eye pain. Denies hemoptysis CARDIOVASCULAR: Denies chest pain or pressure. RESPIRATORY: No shortness of breath. GASTROINTESTINAL: See HPI for pertinent findings HEMATOLOGIC: Denies bleeding disorders. GENITOURINARY: Denies any blood in urine or increased urinary frequency. SKIN: Denies pruitis. Denies rash. PHYSICAL EXAM: VITAL SIGNS: Reviewed GENERAL: Well-developed in no acute distress. HEENT: No sclera icterus. Extraocular movements grossly intact. Moist buccal mucosa. Head is atraumatic, normocephalic. No nasal drainage. ABDOMEN: Soft. Obese. Nondistended. Tenderness to palpation right upper quadrant and epigastric and right sided mid abdominal pain. pain pump healed incision no evidence of infection NEUROLOGIC: Alert and oriented. Cranial nerves II through XII grossly intact. LABORATORY DATA: WBC 8.38 Hgb 10.9 platelets 256 Sodium is 140 potassium 4.2 creatinine 1.0 Troponin negative x 3 LFTs normal total bilirubin 0.5 lipase 42 IMAGING: Abdominal ultrasound cholelithiasis without ultrasound evidence for acute cholecystitis ASSESSMENT: 1. Right upper quadrant and epigastric abdominal pain 2. Symptomatic cholelithiasis PLAN: -Follow-up on CT scan abdomen pelvis that medicine is ordered -Okay for low-fat diet -Further recommendations forthcoming per surgeon Physician Web Design Specialist note has been reviewed by physician. Signing provider agrees with the documented findings, assessment, and plan of care. Past Medical History Past Medical History: Diabetes Mellitus, Hyperlipidemia, Hypertension, Thyroid Disorder Additional Past Medical History / Comment(s): degenerative disc disease, pinched nerve in neck radiating down back, neuropathy hands, pt states has spot on her kidney that is being monitored History of Any Multi-Drug Resistant Organisms: None Reported Past Surgical History: Orthopedic Surgery Additional Past Surgical History / Comment(s): lt knee surgery, pain pump Past Anesthesia/Blood Transfusion Reactions: No Reported Reaction Smoking Status: Never smoker Past Alcohol Use History: None Reported - Past Family History Mother Family Medical History: No Reported History Brother(s) Family Medical History: Cancer Medications and Allergies Home Medications Medication Instructions Recorded Confirmed Type Aspirin [Adult Low Dose Aspirin EC] 81 mg PO DAILY 05/09/16 09/21/23 History Gabapentin 600 mg PO TID 05/09/16 09/21/23 History Losartan [Cozaar] 50 mg PO DAILY 05/09/16 09/21/23 History Simvastatin [Zocor] 20 mg PO DAILY 05/09/16 09/21/23 History metFORMIN HCL [Glucophage] 1,000 mg PO BID 05/09/16 09/21/23 History Furosemide [Lasix] 20 mg PO DAILY 07/02/23 09/21/23 History Levothyroxine Sodium [Synthroid] 112 mcg PO DAILY 07/02/23 09/21/23 History Meloxicam [Mobic] 15 mg PO DAILY 07/02/23 09/21/23 History Pioglitazone [Actos] 30 mg PO DAILY 07/02/23 09/21/23 History Cholecalciferol (Vitamin D3) 50 mcg PO DAILY 09/21/23 09/21/23 History [Vitamin D3 (50 Mcg = 2000 Iu)] DULoxetine HCL [Cymbalta] 60 mg PO DAILY 09/21/23 09/21/23 History HYDROcodone/APAP 5-325MG [[place] 1 tab PO DAILY PRN 09/21/23 09/21/23 History 5-325] HYDROcodone/APAP 5-325MG [[place] 1 tab PO HS 09/21/23 09/21/23 History 5-325] Meclizine [Antivert] 25 mg PO TID PRN 09/21/23 09/21/23 History SUMAtriptan succinate [Imitrex] 50 mg PO BID PRN 09/21/23 09/21/23 History tiZANidine [Zanaflex] 4 mg PO BID PRN 09/21/23 09/21/23 History Allergies Allergy/AdvReac Type Severity Reaction Status Date / Time turmeric Allergy Rash/Hives Verified 09/21/23 19:01 Surgical - Exam Vital Signs Temp Pulse Resp BP Pulse Ox 98.4 F 66 16 163/80 98 09/21/23 11:47 09/21/23 11:47 09/21/23 11:47 09/21/23 11:47 09/21/23 11:47 Results - Labs 09/22/23 06:06 09/22/23 06:06 Abnormal Lab Results - Last 24 Hours (Table) 09/22/23 09/22/23 Range/Units 06:06 06:06 RBC 3.59 L (4.10-5.20) X 10*6/uL Hgb 10.9 L (12.0-15.0) g/dL Hct 33.3 L (37.2-46.3) % BUN/Creatinine Ratio 11.50 L (12.00-20.00) Ratio Diabetes panel 09/22/23 Range/Units 06:06 Sodium 140 (135-145) mmol/L Potassium 4.2 (3.5-5.5) mmol/L Chloride 102 (96-109) mmol/L Carbon Dioxide 26.1 (21.6-31.8) mmol/L BUN 11.5 (9.0-27.0) mg/dL Creatinine 1.0 (0.6-1.5) mg/dL Glucose 107 (70-110) mg/dL Calcium 9.2 (8.7-10.3) mg/dL AST 13 (13-35) U/L ALT 9 (8-44) U/L Alkaline Phosphatase 65 (41-126) U/L Total Protein 6.3 (6.2-8.2) g/dL Albumin 3.9 (3.8-4.9) g/dL Triglycerides 78.00 (0.00-149.00) mg/dL HDL Cholesterol 51.10 (40.00-60.00) mg/dL Calcium panel 09/22/23 Range/Units 06:06 Calcium 9.2 (8.7-10.3) mg/dL Albumin 3.9 (3.8-4.9) g/dL Pituitary panel 09/22/23 Range/Units 06:06 Sodium 140 (135-145) mmol/L Potassium 4.2 (3.5-5.5) mmol/L Chloride 102 (96-109) mmol/L Carbon Dioxide 26.1 (21.6-31.8) mmol/L BUN 11.5 (9.0-27.0) mg/dL Creatinine 1.0 (0.6-1.5) mg/dL Glucose 107 (70-110) mg/dL Calcium 9.2 (8.7-10.3) mg/dL Adrenal panel 09/22/23 Range/Units 06:06 Sodium 140 (135-145) mmol/L Potassium 4.2 (3.5-5.5) mmol/L Chloride 102 (96-109) mmol/L Carbon Dioxide 26.1 (21.6-31.8) mmol/L BUN 11.5 (9.0-27.0) mg/dL Creatinine 1.0 (0.6-1.5) mg/dL Glucose 107 (70-110) mg/dL Calcium 9.2 (8.7-10.3) mg/dL Total Bilirubin 0.5 (0.3-1.2) mg/dL AST 13 (13-35) U/L ALT 9 (8-44) U/L Alkaline Phosphatase 65 (41-126) U/L Total Protein 6.3 (6.2-8.2) g/dL Albumin 3.9 (3.8-4.9) g/dL
--- NOTE | 2023-09-22 16:14 | CT ---
EXAMINATION TYPE: CT abdomen pelvis w con DATE OF EXAM: 09/22/2023 COMPARISON: Same day ultrasound HISTORY: right sided abdominal pain CT DLP: 1813 mGycm CONTRAST: CT scan of the abdomen and pelvis is performed with Oral Contrast and with IV Contrast, patient injec damien with 100ml mL of Isovue 300. FINDINGS: LUNG BASES-: No visible nodule. No infiltrate. LIVER/GB: Large impacted gallstone at the gallbladder neck. There is pericholecystic fluid. Wall thic kening at the level of the gallbladder neck measuring 4.1 mm. Acute cholecystitis is not excluded. No space occupying hepatic lesion. Biliary tree is of normal caliber. PANCREAS: No inflammation. No distinct mass. SPLEEN: No splenic enlargement. No lesion seen. ADRENALS: No nodule. No thickening. KIDNEYS/BLADDER: No hydronephrosis. No nephrolithiasis. No distinct renal mass. Urinary bladder g rossly unremarkable. BOWEL: Normal appendix. Normal bowel caliber. No inflammation. GENITAL ORGANS: No gross abnormality. LYMPH NODES: No greater than 1cm abdominal or pelvic lymph nodes are appreciated. AORTA: No significant abnormality. OSSEOUS STRUCTURES: No significant abnormality is seen. OTHER: No significant additional abnormality is seen. IMPRESSION: 1. Large impacted gallstone at the gallbladder neck. There is pericholecystic fluid. Wall thickening at the level of the gallbladder neck measuring 4.1 mm. Acute cholecystitis is not excluded.
[2023-09-22] MEDS: HYDROcodone/APAP 5-325MG 1 EACH TAB PO PRN (17:39)
[2023-09-22] MEDS: PIOGLITAZONE 30 MG TAB PO SCH (17:42)
--- NOTE | 2023-09-23 10:31 | P.PN ---
Subjective Progress Note Date: 09/23/23 Kecia Scott, is a 67-year-old female who presented to [facility] emergency room with a chief complaint of chest pain, she was evaluated in the emergency room and admitted to telemetry floor, serial EKG and cardiac enzymes were ordered, shortly after admission patient started having worsening abdominal pain. She was evaluated in the emergency room vital examination on presentation re vealed a temperature of 98.4 pulse 66 respirations 16 blood pressure 163/80 pulse ox 98% on room air Laboratory data reveals a white blood count of 8.6 hemoglobin 11.8 platelet count 261 BUN 13 creatinine 0.8 troponin 0.012 BNP 501 Testing in the emergency room revealed EKG revealed sinus rhythm without acute abnormality, chest x-ray revealed no evidence for acute pulmonary disease Patient was admitted to medical floor for further evaluation and treatment On 09/23/2023 patient is alert and oriented x 3. Patient underwent CT scan of abdomen and pelvis yesterday showing large impacted gallstone at the gallbladder neck. There is [place] cholecystic fluid and wall thickening at the level of the gallbladder neck measuring 4.1 mm acute cholecystitis is not excluded. Plans today for lap polo per surgical services. Patient also evaluated by cardiology services per cardiology patient patient's chest pain is atypical and does not appear to be cardiac. At this time patient reports improvement with her nausea and vomiting denies any chest pain or shortness of breath. Patient denies any urinary burning or frequency. Current vital signs Temp 98.8, heart rate 56, respiratory rate 16, blood pressure 98/64 with a pulse ox of 94% on room air Objective - Vital Signs Vital signs: Vital Signs Temp 98.8 F 09/23/23 07:00 Pulse 56 L 09/23/23 08:00 Resp 16 09/23/23 08:00 BP 98/64 09/23/23 07:00 Pulse Ox 94 L 09/23/23 07:00 FiO2 Intake & Output 09/22/23 09/23/23 09/23/23 18:59 06:59 18:59 Intake Total 1600 Balance 1600 Intake: Oral 1600 Other: Voiding Method Toilet Toilet Toilet # Voids 5 2 - Exam In general patient is alert and oriented x 3 in no distress HEENT head normocephalic and atraumatic Neck is supple no JVD no goiter no lymphadenopathy no carotid bruit Chest examination is clear to auscultation no crackles no wheezing Cardiac exam reveals regular heart sounds S1 and S2 no gallops no murmurs Abdomen is soft, with mild diffuse tenderness no organomegaly with normal bowel sounds Extremity exam reveals no edema no cyanosis or clubbing Neurological examination reveals no gross focal deficits - Labs CBC & Chem 7: 09/22/23 06:06 09/22/23 06:06 Labs: Abnormal Lab Results - Last 24 Hours (Table) 09/22/23 09/22/23 Range/Units 06:06 06:06 RBC 3.59 L (4.10-5.20) X 10*6/uL Hgb 10.9 L (12.0-15.0) g/dL Hct 33.3 L (37.2-46.3) % BUN/Creatinine Ratio 11.50 L (12.00-20.00) Ratio Assessment and Plan Plan: Episode of chest pain. Atypical per cardiology does not appear cardiac Acute cholecystitis with large impacted gallstone at the gallbladder neck. Plans for lap polo today 09/23/2023 Underlying history of hypertension Underlying history of hyperlipidemia Underlying history of [id number] diabetes mellitus Underlying history of hypothyroidism Underlying history of peripheral neuropathy Underlying history of migraine headache At this time patient is admitted to telemetry floor Home medications reviewed and reordered, hold metformin for now Serial EKG and cardiac enzymes ordered Cardiology consultation requested In regard to abdominal pain abdomen ultrasound was ordered, amylase lipase ordered, keep n.p.o. for now For DVT prophylaxis subcu Lovenox Will follow closely
[2023-09-23 11:15] LABS: Basophils # (A) 0.04 X 10*3/uL (0.00-0.10); Basophils % (A) 0.6 %; Eosinophils # (A) 0.18 X 10*3/uL (0.04-0.35); Eosinophils % (A) 2.6 %; HCT 34.4 % (37.2-46.3); Lymphocytes # (A) 2.52 X 10*3/uL (0.90-5.00); Lymphocytes % (A) 36.3 %; MCH 30.1 pg (27.0-32.0); Mean Platelet Volume 11.2 FL (9.5-12.2); Monocytes # (A) 0.55 X 10*3/uL (0.20-1.00); Monocytes % (A) 7.9 %; NRBC Per 100 WBC 0 X 10*3/uL (0.00-0.01); Neutrophils # (A) 3.62 X 10*3/uL (1.80-7.70); Neutrophils % (A) 52.2 %; Platelet Count 251 X 10*3/uL (140-440); RBC 3.66 X 10*6/uL (4.10-5.20); RDW 13.5 % (11.5-14.5); WBC 6.94 X 10*3/uL (4.50-10.00)
[2023-09-23 11:53] LABS: ALT 12 U/L (8-44); AST 15 U/L (13-35); Albumin 3.9 g/dL (3.8-4.9); Alkaline Phosphatase 63 U/L (41-126); Blood Urea Nitrogen 16.4 mg/dL (9.0-27.0); Carbon Dioxide 26.1 mmol/L (21.6-31.8); Chloride 101 mmol/L (96-109); Globulin 2.3 g/dL (1.6-3.3); Glucose 92 mg/dL (70-110); Sodium 137 mmol/L (135-145); Total Bilirubin 0.5 mg/dL (0.3-1.2); Total Protein 6.2 g/dL (6.2-8.2)
--- NOTE | 2023-09-23 11:58 | CA ---
Transthoracic Echo Report Name: Kecia Scott Age: 67 Gender: F : 1955 Exam Date: 09/23/2023 07:55 Exam Location: [place] Echo Ht (in): 63 Wt (lb): 233 Ordering Physician: Rahul Mcintyre DO ([email or web address]) Attending/Referring Phys: Surveyor Marion Hernandez RDCS Procedure CPT: Indications: re: CP Cardiac Hx: Technical Quality: Fair Contrast 1: Total Dose (mL): Contrast 2: Total Dose (mL): MEASUREMENTS (Male / Female) Normal Values 2D ECHO LV Diastolic Diameter PLAX 4.6 cm 4.2 - 5.9 / 3.9 - 5.3 cm IVS Diastolic Thickness 1.0 cm 0.6 - 1.0 / 0.6 - 0.9 cm LVPW Diastolic Thickness 1.0 cm 0.6 - 1.0 / 0.6 - 0.9 cm LV Relative Wall Thickness 0.5 RV Internal Dim ED PLAX 2.1 cm LV Diastolic Volume MOD BP 44.4 cm??? 67 - 155 / 56 - 104 cm??? LV Systolic Volume MOD BP 15.6 cm??? 22 - 58 / 19 - 49 cm??? LV Ejection Fraction MOD BP 64.9 % >= 55 % LV Cardiac Index MOD BP 739.0 cm???/min???m??? LV Diastolic Volume MOD 4C 66.5 cm??? LV Systolic Volume MOD 4C 27.2 cm??? LV Ejection Fraction MOD 4C 59.1 % LV Cardiac Index MOD 4C 1006.5 cm???/min???m??? LV Diastolic Length 4C 7.2 cm LV Systolic Length 4C 5.9 cm LV Diastolic Volume MOD 2C 26.0 cm??? LV Systolic Volume MOD 2C 8.6 cm??? LV Ejection Fraction MOD 2C 66.9 % LV Cardiac Index MOD 2C 445.7 cm???/min???m??? LV Diastolic Length 2C 6.2 cm LV Systolic Length 2C 5.7 cm M-MODE Aortic Root Diameter MM 2.8 cm LA Systolic Diameter MM 4.7 cm LA Ao Ratio MM 1.7 DOPPLER AV Peak Velocity 135.6 cm/s AV Peak Gradient 7.4 mmHg Mitral E Point Velocity 49.2 cm/s Mitral A Point Velocity 74.8 cm/s Mitral E to A Ratio 0.7 MV Deceleration Time 348.9 ms MV E' Velocity 8.2 cm/s Mitral E to MV E' Ratio 6.0 FINDINGS Left Ventricle Left ventricular ejection fraction is estimated at 55-60%. Mildly increased septal wall thickness. Mildly increased posterior wall thickness. No obvious regional wall motion abnormalities. Left ventricular cavity size normal. Right Ventricle Normal right ventricular size and function. Unable to estimate the right ventricular systolic pressure. Right Atrium Normal right atrial size. Left Atrium Mild left atrial dilatation. Mitral Valve Structurally normal mitral valve. Trace mitral regurgitation. No mitral stenosis. Aortic Valve Trileaflet aortic valve. No aortic valve stenosis or regurgitation. Tricuspid Valve Structurally normal tricuspid valve. Trace tricuspid regurgitation. No tricuspid stenosis. Pulmonic Valve Structurally normal pulmonic valve. Trace pulmonic regurgitation. No pulmonic stenosis. Pericardium No pericardial or pleural effusion. Aorta Normal size aortic root and proximal ascending aorta. CONCLUSIONS Left ventricular ejection fraction 55-60% Mildly increased left ventricular wall thickness Trace mitral regurgitation Trace tricuspid regurgitation No pericardial effusion Previewed by: Dr. Rahul Mcintyre DO (Electronically Signed) Final Date: 23 September 2023 11:57
--- NOTE | 2023-09-23 12:44 | P.PN ---
Subjective HISTORY OF PRESENTING ILLNESS This is a pleasant 67-year-old with past medical history significant for hypertension, hyperlipidemia, obesity. she follows in the office with Dr. Isabel. She has been having 2 days of substernal chest pain at her sternum associated with some upset stomach. She did actually had 2 episodes of nausea and throwing up. Since that time she continues to have mild chest pain. It is reproducible on exam. She admits it is worse if she takes a deep breath in. She denies any recent fevers or chills or cough. She is also being worked up for any GI source. She had Lexiscan stress test 1 year ago which showed fixed d efects over no reversible ischemia. Otherwise she states she has been doing fairly well recently and no change in medications. EKG shows normal sinus rhythm without significant ST or T wave abnormalities and troponins negative 3. 09/22 patient seen and examined. Patient denies any further chest pain or pressure. She states the GI cocktail did help somewhat with her chest pain. Additionally found to have gallstones and being evaluated for surgery likely later today. PHYSICAL EXAMINATION Vital signs reviewed. CONSTITUTIONAL: No apparent distress. HEENT: Head is normocephalic. Pupils are equal, round. Sclerae anicteric. Mucous membranes of the mouth are moist. No JVD. No carotid bruit. CHEST EXAMINATION: Lungs are clear to auscultation. +chest wall tenderness is noted on palpation and with deep breathing. HEART EXAMINATION: Regular rate and rhythm. S1, S2 heard. No murmurs, gallops or rub. ABDOMEN: Soft, nontender. Positive bowel sounds. EXTREMITIES: 2+ peripheral pulses, no lower extremity edema and no calf tenderness. NEUROLOGIC EXAMINATION: Patient is awake, alert and oriented x3. ASSESSMENT Atypical chest pain appears more musculoskeletal Nausea, emesis rule out GI source Hypertension Hyperlipidemia Obesity gallstones PLAN echocardiogram shows preserved EF and troponins have all been normal. More likely GI source with patient additionally having gallstones. Patient to undergo cholecystectomy and patient is cleared from a cardiology standpoint with no high risk features. No further recommendations as an inpatient. Follow-up as an outpatient. Objective - Vital Signs Vital signs: Vital Signs Temp 98.8 F 09/23/23 07:00 Pulse 56 L 09/23/23 08:00 Resp 16 09/23/23 08:00 BP 98/64 09/23/23 07:00 Pulse Ox 94 L 09/23/23 07:00 FiO2 Intake & Output 09/22/23 09/23/23 09/23/23 18:59 06:59 18:59 Intake Total 1600 Balance 1600 Intake: Oral 1600 Other: Voiding Method Toilet Toilet Toilet # Voids 5 2 - Labs CBC & Chem 7: 09/23/23 07:17 09/23/23 07:17 Labs: Abnormal Lab Results - Last 24 Hours (Table) 09/23/23 Range/Units 07:17 RBC 3.66 L (4.10-5.20) X 10*6/uL Hgb 11.0 L (12.0-15.0) g/dL Hct 34.4 L (37.2-46.3) %
--- NOTE | 2023-09-23 13:41 | P.PN ---
Subjective Progress Note Date: 09/23/23 CHIEF COMPLAINT: Abdominal pain HISTORY OF PRESENT ILLNESS: Patient comfortably. No new complaints. Patient has been cleared by cardiology service for surgical intervention. CT scan abdomen pelvis reported large impacted gallstone at the gallbladder neck. There is pericholecystic fluid. Wall thickening at the level of the gallbladder neck measuring 4.1 mm. Acute cholecystitis not excluded. Afebrile. WBC 6.93 PHYSICAL EXAM: VITAL SIGNS: Reviewed. GENERAL: Well-developed in no acute distress. ABDOMEN: Soft. Nondistended. Right upper quadrant tenderness NEUROLOGIC: Alert and oriented. Cranial nerves II through XII grossly intact. ASSESSMENT: 1. Acute cholecystitis 2. Cholelithiasis PLAN: -Patient scheduled today for laparoscopic cholecystectomy with Dr. Castellanos Physician Attending Urologist note has been reviewed by physician. Signing provider agrees with the documented findings, assessment, and plan of care. Objective - Vital Signs Vital signs: Vital Signs Temp 98.8 F 09/23/23 07:00 Pulse 56 L 09/23/23 08:00 Resp 16 09/23/23 08:00 BP 98/64 09/23/23 07:00 Pulse Ox 94 L 09/23/23 07:00 FiO2 Intake & Output 09/22/23 09/23/23 09/23/23 18:59 06:59 18:59 Intake Total 1600 Balance 1600 Intake: Oral 1600 Other: Voiding Method Toilet Toilet Toilet # Voids 5 2 - Labs CBC & Chem 7: 09/23/23 07:17 09/23/23 07:17 Labs: Abnormal Lab Results - Last 24 Hours (Table) 09/23/23 Range/Units 07:17 RBC 3.66 L (4.10-5.20) X 10*6/uL Hgb 11.0 L (12.0-15.0) g/dL Hct 34.4 L (37.2-46.3) %
[2023-09-23] MEDS: IV FLUID CONTINUATION 1,000 ML IV ONE ×2 (15:27→17:34)
[2023-09-23] MEDS: LACTATED RINGERS 1,000 ML BAG IV STA (15:39)
[2023-09-23] MEDS: ONDANSETRON 4 MG/2 ML VIAL IVP STA (15:40)
[2023-09-23 15:47] LABS: Glucose,Whole Blood 94 mg/dL (70-110)
[2023-09-23] MEDS: BUPIVACAINE (PF) 0.25% 30 ML VIAL SQ ONE ×2 (15:53→16:27)
[2023-09-23] MEDS ORDERED: fentaNYL (PF) 50 MCG/ML 2 ML AMP ONE (16:23)
[2023-09-23] MEDS ORDERED: GLYCOPYRROLATE 0.2 MG/ML 2 ML VIAL ONE (16:23)
[2023-09-23] MEDS ORDERED: LIDOCAINE 1% INJ 10MG/ML (20 ML MDV) ONE (16:23)
[2023-09-23] MEDS ORDERED: MIDAZOLAM 2 MG/2 ML VIAL ONE (16:23)
[2023-09-23] MEDS ORDERED: ceFAZolin 1 GM/50 ML BAG (PMX) ONE (16:23)
[2023-09-23] MEDS ORDERED: KETOROLAC 15 MG/ML 1 ML VIAL ONE (16:23)
[2023-09-23] MEDS ORDERED: ROCURONIUM 10 MG/ML (5 ML VIAL) IV ONE (16:23)
[2023-09-23] MEDS ORDERED: PROPOFOL 10 MG/ML 20 ML VIAL IV ONE (16:23)
[2023-09-23] MEDS ORDERED: NEOSTIGMINE 1 MG/ML 10 ML VIAL ONE (16:23)
[2023-09-23] MEDS ORDERED: SUCCINYLCHOLINE CHLORIDE 200 MG/10 ML VIAL IV ONE (16:23)
[2023-09-23] MEDS ORDERED: ONDANSETRON 4 MG/2 ML VIAL IVP PRN (17:28)
--- NOTE | 2023-09-23 17:28 | P.OP ---
Date of Procedure: 09/23/23 Preoperative Diagnosis: Acute cholecystitis Cholelithiasis Postoperative Diagnosis: Same Procedure(s) Performed: Laparoscopic cholecystectomy Anesthesia: DENY Surgeon: Stewart Castellanos Estimated Blood Loss (ml): 5 Pathology: other (Gallbladder) Condition: stable Disposition: PACU Description of Procedure: The patient was placed on the operating table. The patient received a general endotracheal tube anesthesia. The patients abdomen was prepped and draped in the usual sterile fashion. Through an infraumbilical stab incision, the fascia of the anterior abdominal wall was grasped with a pair of Kochers and then the Veress needle was placed in the peritoneal cavity. Position of the Veress needle was confirmed with positive drop test. The abdomen was then insufflated. After adequate insufflation, the 10 mm trocar was placed in the peritoneal cavity. Following this the laparoscope was placed in the peritoneal cavity. The patient was placed in the head-up, right side up position and then a 5 mm trocar was placed in the right lateral and right subcostal po sition under direct visualization. A 8 mm trocar was placed in the epigastric position. The gallbladder was grasped in the fundus and infundibulum. Traction on the gallbladder was placed in the lateral and the cephalad positions. The triangle of Calot was visualized.. The cystic duct was bluntly dissected until the union of the cystic duct and common bile duct was seen. A critical view of safety was achieved. The cystic duct was then divided and sealed with the Harmonic scissors. A PDS Endoloop was then placed throughout the cystic duct stump. The cystic artery divided and sealed with the Harmonic scissors. The gallbladder was then removed from the liver bed using Harmonic scissors. The gallbladder was then extracted through the epigastric port site. Operative field was checked for any bleeding spots and Harmonic scissors was used to coagulate the liver bed. The abdomen was irrigated. The trocars were removed. The skin was closed using interrupted 3-0 Vicryl suture. Dermabond dressing were applied. The patient tolerated the procedure well.
[2023-09-23] MEDS ORDERED: HYDROmorphone 0.5 MG/0.5 ML SYRINGE IM PRN (17:44)
[2023-09-23] MEDS: HYDROmorphone 0.5 MG/0.5 ML SYRINGE IVP STA (17:50)
[2023-09-23] MEDS: SODIUM CHLORIDE 0.9% 500 ML 500 ML IV ONE ×2 (21:16→23:53)
[2023-09-23] MEDS: SODIUM CHLORIDE 0.9% 1,000 ML IV SCH (21:16)
[2023-09-24] MEDS: HYDROmorphone 1 MG/ML 1 ML SYRINGE IVP PRN (05:13)
[2023-09-24] MEDS: SODIUM CHLORIDE 0.9% 500 ML 500 ML IV ONE (06:36)
[2023-09-24] MEDS: ENOXAPARIN 40 MG/0.4 ML SYRINGE SQ SCH (08:54)
--- NOTE | 2023-09-24 10:54 | P.PN ---
Subjective Progress Note Date: 09/24/23 Kecia Scott, is a 67-year-old female who presented to [facility] emergency room with a chief complaint of chest pain, she was evaluated in the emergency room and admitted to telemetry floor, serial EKG and cardiac enzymes were ordered, shortly after admission patient started having worsening abdominal pain. She was evaluated in the emergency room vital examination on presentation re vealed a temperature of 98.4 pulse 66 respirations 16 blood pressure 163/80 pulse ox 98% on room air Laboratory data reveals a white blood count of 8.6 hemoglobin 11.8 platelet count 261 BUN 13 creatinine 0.8 troponin 0.012 BNP 501 Testing in the emergency room revealed EKG revealed sinus rhythm without acute abnormality, chest x-ray revealed no evidence for acute pulmonary disease Patient was admitted to medical floor for further evaluation and treatment On 09/23/2023 patient is alert and oriented x 3. Patient underwent CT scan of abdomen and pelvis yesterday showing large impacted gallstone at the gallbladder neck. There is [place] cholecystic fluid and wall thickening at the level of the gallbladder neck measuring 4.1 mm acute cholecystitis is not excluded. Plans today for lap polo per surgical services. Patient also evaluated by cardiology services per cardiology patient patient's chest pain is atypical and does not appear to be cardiac. At this time patient reports improvement with her nausea and vomiting denies any chest pain or shortness of breath. Patient denies any urinary burning or frequency. Current vital signs Temp 98.8, heart rate 56, respiratory rate 16, blood pressure 98/64 with a pulse ox of 94% on room air On 09/24/2023 patient is alert and oriented x 3. Status post lap polo. Patient complains of mild abdominal discomfort. Current vital signs Temp 97.5, heart rate 101, respiratory rate 17, blood pressure 105/65 with a pulse ox of 95% on room air. Patient had episode of. Patient had episode of hypotension last night postoperatively patient was given 3 boluses and started on fluid 100 cc/hr. blood pressure improved. Patient denies chest pain or shortness of breath. Patient denies nausea vomiting or diarrhea. Patient denies any urinary burning or frequency Objective - Vital Signs Vital signs: Vital Signs Temp 97.5 F L 09/24/23 07:00 Pulse 101 H 09/24/23 07:00 Resp 09/24/23 08:53 BP 105/65 09/24/23 07:00 Pulse Ox 95 09/24/23 07:00 FiO2 Intake & Output 09/23/23 09/24/23 09/24/23 18:59 06:59 18:59 Intake Total 950 118 118 Output Total 100 Balance 850 118 118 Intake: IV 950 Oral 0 118 118 Output: Estimated Blood Loss 100 Other: Voiding Method Toilet Toilet Toilet # Voids 3 0 - Exam In general patient is alert and oriented x 3 in no distress HEENT head normocephalic and atraumatic Neck is supple no JVD no goiter no lymphadenopathy no carotid bruit Chest examination is clear to auscultation no crackles no wheezing Cardiac exam reveals regular heart sounds S1 and S2 no gallops no murmurs Abdomen is soft, with mild diffuse tenderness no organomegaly with normal bowel sounds Extremity exam reveals no edema no cyanosis or clubbing Neurological examination reveals no gross focal deficits - Labs CBC & Chem 7: 09/23/23 07:17 09/23/23 07:17 Labs: Abnormal Lab Results - Last 24 Hours (Table) 09/23/23 Range/Units 07:17 RBC 3.66 L (4.10-5.20) X 10*6/uL Hgb 11.0 L (12.0-15.0) g/dL Hct 34.4 L (37.2-46.3) % Assessment and Plan Plan: Episode of chest pain. Atypical per cardiology does not appear cardiac Acute cholecystitis with large impacted gallstone at the gallbladder neck. Status post lap polo Postoperative hypotension. Patient given IV boluses and started on normal saline at 100 Underlying history of hypertension Underlying history of hyperlipidemia Underlying history of iei-[id number] diabetes mellitus Underlying history of hypothyroidism Underlying history of peripheral neuropathy Underlying history of migraine headache At this time patient is admitted to telemetry floor Home medications reviewed and reordered, hold metformin for now Serial EKG and cardiac enzymes ordered Cardiology consultation requested For DVT prophylaxis subcu Lovenox Will follow closely
[2023-09-24 10:56] LABS: Basophils # (A) 0.01 X 10*3/uL (0.00-0.10); Basophils % (A) 0.1 %; Eosinophils # (A) 0 X 10*3/uL (0.04-0.35); Eosinophils % (A) 0 %; HCT 26.7 % (37.2-46.3); HGB 8.4 g/dL (12.0-15.0); Lymphocytes # (A) 1.18 X 10*3/uL (0.90-5.00); MCH 29.8 pg (27.0-32.0); MCHC 31.5 g/dL (32.0-37.0); MCV 94.7 FL (80.0-97.0); Mean Platelet Volume 11.3 FL (9.5-12.2); Monocytes # (A) 0.61 X 10*3/uL (0.20-1.00); Monocytes % (A) 5.2 %; NRBC Per 100 WBC 0 X 10*3/uL (0.00-0.01); Neutrophils # (A) 9.96 X 10*3/uL (1.80-7.70); Neutrophils % (A) 84.3 %; Platelet Count 302 X 10*3/uL (140-440); RBC 2.82 X 10*6/uL (4.10-5.20); RDW 13.3 % (11.5-14.5); WBC 11.81 X 10*3/uL (4.50-10.00)
[2023-09-24 11:42] LABS: ALT 165 U/L (8-44); AST 173 U/L (13-35); Albumin 3.5 g/dL (3.8-4.9); Albumin/Globulin Ratio 1.67 Ratio (1.60-3.17); Alkaline Phosphatase 130 U/L (41-126); Blood Urea Nitrogen 22.1 mg/dL (9.0-27.0); Calcium 8.3 mg/dL (8.7-10.3); Carbon Dioxide 19.5 mmol/L (21.6-31.8); Chloride 102 mmol/L (96-109); Globulin 2.1 g/dL (1.6-3.3); Glucose 174 mg/dL (70-110); Sodium 135 mmol/L (135-145); Total Bilirubin 0.4 mg/dL (0.3-1.2); Total Protein 5.6 g/dL (6.2-8.2)
[2023-09-24] MEDS: HYDROcodone/APAP 5-325MG 1 EACH TAB PO PRN (13:04)
[2023-09-24] MEDS: PIPERACILLIN-TAZOBACTAM 3.375 GM in SODIUM CHLORIDE 0.9% 100 ML IVPB SCH (13:05)
[2023-09-24] MEDS: SODIUM CHLORIDE 0.9% 1,000 ML IV ONE (13:05)
--- NOTE | 2023-09-24 15:59 | P.PN ---
Subjective Progress Note Date: 09/24/23 CHIEF COMPLAINT: Abdominal pain HISTORY OF PRESENT ILLNESS: Patient is postop day #1 status post laparoscopic cholecystectomy. Her pain is controlled. She denies any nausea or vomiting. Patient has been tachycardic and hypotensive. Urine output has been low. She already had received 1 and half liter fluid boluses. Afebrile. WBC up at 11.8 Hgb is down from 11-8.4 platelets 302 sodium 135 potassium is 5.0 creatinine 1.3 total bilirubin 0.4 AST 173 ALT 165 alk phos 130 LFTs elevated Patient seen and examined with Dr. Castellanos PHYSICAL EXAM: VITAL SIGNS: Reviewed. GENERAL: Well-developed in no acute distress. ABDOMEN: Soft. Nondistended. Incision sites clean dry and intact NEUROLOGIC: Alert and oriented. Cranial nerves II through XII grossly intact. ASSESSMENT: 1. Acute cholecystitis 2. Cholelithiasis 3. Elevated LFTs 4. Anemia PLAN: -An additional 1 L fluid bolus ordered for hypotension, tachycardia and low urine output -Antibiotics added for leukocytosis -Repeat CBC and LFTs in a.m. -Continue regular diet -Continue IV fluids -Continue pain management -Incentive spirometer ordered -Continue DVT prophylaxis Lovenox Physician Show Host/Hostess note has been reviewed by physician. Signing provider agrees with the documented findings, assessment, and plan of care. Objective - Vital Signs Vital signs: Vital Signs Temp 98.2 F 09/24/23 11:30 Pulse 122 H 09/24/23 11:30 Resp 16 09/24/23 11:30 BP 91/64 09/24/23 11:30 Pulse Ox 95 09/24/23 11:30 FiO2 Intake & Output 09/23/23 09/24/23 09/24/23 18:59 06:59 18:59 Intake Total 950 118 118 Output Total 100 Balance 850 118 118 Intake: IV 950 Oral 0 118 118 Output: Estimated Blood Loss 100 Other: Voiding Method Toilet Toilet Toilet # Voids 3 0 - Labs CBC & Chem 7: 09/24/23 06:27 09/24/23 06:27 Labs: Abnormal Lab Results - Last 24 Hours (Table) 09/24/23 09/24/23 Range/Units 06:27 06:27 WBC 11.81 H (4.50-10.00) X 10*3/uL RBC 2.82 L (4.10-5.20) X 10*6/uL Hgb 8.4 L (12.0-15.0) g/dL Hct 26.7 L (37.2-46.3) % MCHC 31.5 L (32.0-37.0) g/dL Immature Gran # 0.05 H (0.00-0.04) X 10*3/uL Neutrophils # 9.96 H (1.80-7.70) X 10*3/uL Eosinophils # 0 L (0.04-0.35) X 10*3/uL Carbon Dioxide 19.5 L (21.6-31.8) mmol/L Anion Gap 13.50 H (4.00-12.00) mmol/L Est GFR (CKD-EPI) 46 L (>=60) Glucose 174 H (70-110) mg/dL Calcium 8.3 L (8.7-10.3) mg/dL AST 173 H (13-35) U/L ALT 165 H (8-44) U/L Alkaline Phosphatase 130 H (41-126) U/L Total Protein 5.6 L (6.2-8.2) g/dL Albumin 3.5 L (3.8-4.9) g/dL
--- NOTE | 2023-09-25 07:35 | P.CONS ---
History of Present Illness - Reason for Consult Consult date: 09/24/23 Leukocytosis, hypotension Requesting physician: Carlos Gonzalez - Chief Complaint Chest and epigastric pain x few days - History of Present Illness Patient is a 67-year-old female with a past medical his significant for diabetes mellitus hypertension hyperlipidemia osteomyelitis presenting to the hospital 3 days ago for evaluation of central chest pain pain has been mostly epigastric lower chest area and has been concerned about indigestion initially patient denies having any shortness of breath or cough no URI symptoms no fever no chills some nausea but no vomiting and no diarrhea patient on presentation to the hospital was afebrile and no fever have been called subsequently patient was mildly tachycardic but not hypotensive or hypoxic and no need for supplemental oxygen patient did have a normal white count admission the white count is slightly up to 11.81 today creatinine is normal liver enzymes are elevated today lipase amylase was normal patient did have a initial cardiac workup subsequently did have a CT of the abdominal pelvis concerning for large impacted gallstone at the gallbladder neck and there is a pericholecystic fluid or wall thickening acute cholecystitis not excluded patient was taken to the OR and the patient is s/p laparoscopic cholecystectomy patient has been started on Zosyn infectious disease was consulted for further management of antibiotic therapy Review of Systems Positive point and negatives has been mentioned in the HPI, complete review of systems was performed and all other systems are negative Past Medical History Past Medical History: Diabetes Mellitus, Hyperlipidemia, Hypertension, Thyroid Disorder Additional Past Medical History / Comment(s): degenerative disc disease, pinched nerve in neck radiating down back, neuropathy hands, pt states has spot on her kidney that is being monitored History of Any Multi-Drug Resistant Organisms: None Reported Past Surgical History: Orthopedic Surgery Additional Past Surgical History / Comment(s): lt knee surgery, pain pump Past Anesthesia/Blood Transfusion Reactions: No Reported Reaction Smoking Status: Never smoker Past Alcohol Use History: None Reported - Past Family History Mother Family Medical History: No Reported History Brother(s) Family Medical History: Cancer Medications and Allergies Home Medications Medication Instructions Recorded Confirmed Type Aspirin [Adult Low Dose Aspirin EC] 81 mg PO DAILY 05/09/16 09/21/23 History Gabapentin 600 mg PO TID 05/09/16 09/21/23 History Losartan [Cozaar] 50 mg PO DAILY 05/09/16 09/21/23 History Simvastatin [Zocor] 20 mg PO DAILY 05/09/16 09/21/23 History metFORMIN HCL [Glucophage] 1,000 mg PO BID 05/09/16 09/21/23 History Furosemide [Lasix] 20 mg PO DAILY 07/02/23 09/21/23 History Levothyroxine Sodium [Synthroid] 112 mcg PO DAILY 07/02/23 09/21/23 History Meloxicam [Mobic] 15 mg PO DAILY 07/02/23 09/21/23 History Pioglitazone [Actos] 30 mg PO DAILY 07/02/23 09/21/23 History Cholecalciferol (Vitamin D3) 50 mcg PO DAILY 09/21/23 09/21/23 History [Vitamin D3 (50 Mcg = 2000 Iu)] DULoxetine HCL [Cymbalta] 60 mg PO DAILY 09/21/23 09/21/23 History HYDROcodone/APAP 5-325MG [[place] 1 tab PO DAILY PRN 09/21/23 09/21/23 History 5-325] HYDROcodone/APAP 5-325MG [[place] 1 tab PO HS 09/21/23 09/21/23 History 5-325] Meclizine [Antivert] 25 mg PO TID PRN 09/21/23 09/21/23 History SUMAtriptan succinate [Imitrex] 50 mg PO BID PRN 09/21/23 09/21/23 History tiZANidine [Zanaflex] 4 mg PO BID PRN 09/21/23 09/21/23 History HYDROcodone/APAP 5-325MG [[place] 1 tab PO Q6HR PRN 3 Days #12 tab 09/26/23 Rx 5-325] Amoxic-Pot Clav 875-125Mg 1 tab PO BID #14 tab 09/27/23 Rx [Augmentin 875-125] Allergies Allergy/AdvReac Type Severity Reaction Status Date / Time turmeric Allergy Rash/Hives Verified 09/21/23 19:01 Physical Exam Vitals: Vital Signs Temp Pulse Pulse Resp BP Pulse Ox 09/24/23 14:00 16 09/24/23 11:30 98.2 F 122 H 16 91/64 95 09/24/23 08:53 17 09/24/23 07:00 97.5 F L 101 H 17 105/65 95 09/24/23 05:10 107 H 116/79 09/24/23 02:00 102 H 09/24/23 00:51 97.6 F 102 H 18 115/79 96 09/23/23 23:30 111 H 87/59 94 L 09/23/23 22:22 105 H 109/69 98 09/23/23 21:51 103 H 100/70 98 09/23/23 21:04 106 H 83/58 96 09/23/23 20:45 109 H 09/23/23 20:30 109 H 91/54 96 09/23/23 20:00 97.6 F 112 H 20 89/63 94 L 09/23/23 19:20 105 H 106/73 95 09/23/23 19:05 100 90/63 94 L 09/23/23 18:50 91 16 105/73 92 L 09/23/23 18:35 97.7 F 90 16 107/72 95 09/23/23 18:03 79 16 134/70 95 09/23/23 17:48 70 16 169/81 98 09/23/23 17:32 97 F L 69 16 180/88 99 Intake and Output 09/24/23 09/24/23 09/24/23 06:59 14:59 22:59 Intake Total 178 Output Total 125 Balance 178 -125 Intake: Oral 178 Output: Urine 125 Other: Voiding Method Toilet # Voids 0 GENERAL DESCRIPTION: Elderly female lying in bed, no distress. No tachypnea or accessory muscle of respiration use. HEENT: Shows Pallor , no scleral icterus. Oral mucous membrane is dry. No pharyngeal erythema or thrush NECK: Trachea central, no thyromegaly. LUNGS: Unlabored breathing. Clear to auscultation anteriorly. No wheeze or crackle. HEART: S1, S2, regular rate and rhythm. No loud murmur ABDOMEN: Soft, mild right upper quadrant tenderness , no guarding or rigidity EXTREMITIES: No edema of feet. SKIN: No rash, no masses palpable. NEUROLOGICAL: The patient is awake, alert, oriented x3, mood and affect normal. Results CBC & Chem 7: 09/27/23 04:13 09/27/23 04:13 Labs: Abnormal Lab Results - Last 24 Hours (Table) 09/24/23 09/24/23 Range/Units 06:27 06:27 WBC 11.81 H (4.50-10.00) X 10*3/uL RBC 2.82 L (4.10-5.20) X 10*6/uL Hgb 8.4 L (12.0-15.0) g/dL Hct 26.7 L (37.2-46.3) % MCHC 31.5 L (32.0-37.0) g/dL Immature Gran # 0.05 H (0.00-0.04) X 10*3/uL Neutrophils # 9.96 H (1.80-7.70) X 10*3/uL Eosinophils # 0 L (0.04-0.35) X 10*3/uL Carbon Dioxide 19.5 L (21.6-31.8) mmol/L Anion Gap 13.50 H (4.00-12.00) mmol/L Est GFR (CKD-EPI) 46 L (>=60) Glucose 174 H (70-110) mg/dL Calcium 8.3 L (8.7-10.3) mg/dL AST 173 H (13-35) U/L ALT 165 H (8-44) U/L Alkaline Phosphatase 130 H (41-126) U/L Total Protein 5.6 L (6.2-8.2) g/dL Albumin 3.5 L (3.8-4.9) g/dL Assessment and Plan (1) Leukocytosis Current Visit: Yes Status: Acute Code(s): D72.829 - ELEVATED WHITE BLOOD CELL COUNT, UNSPECIFIED SNOMED Code(s): 821011121 (2) Acute cholecystitis Current Visit: Yes Status: Acute Code(s): K81.0 - ACUTE CHOLECYSTITIS SNOMED Code(s): 65276014 Plan: 1patient presented to the hospital with epigastric and central chest pain workup now with evidence of acute cholecystitis in this patient who is status post laparoscopic ostectomy patient did have a mildly elevated white count and mild hypotension more likely due to underlying cholecystitis in this patient who is s/p cholecystectomy and need to call for the enteric gram-negative both aerobes and anaerobes no evidence of any infection at any other parts of the body at this point 2blood culture has been obtained we will repeat a CBC and CRP with a.m. lab. 3Zosyn 3.375 g every 8 hours should provide adequate antibiotic coverage We will follow on clinical condition and cultures to further adjust medication if needed Thank you for this consultation we will follow the patient along with you Dictation was produced using [employer] dictation software. please excuse any grammatical, word or spelling errors. Time with Patient: Greater than 30
[2023-09-25 09:20] LABS: ALT 84 U/L (8-44); AST 58 U/L (13-35); Albumin 3.3 g/dL (3.8-4.9); Albumin/Globulin Ratio 1.57 Ratio (1.60-3.17); Alkaline Phosphatase 94 U/L (41-126); BUN/Creat Ratio 16.17 Ratio (12.00-20.00); Blood Urea Nitrogen 19.4 mg/dL (9.0-27.0); Calcium 7.8 mg/dL (8.7-10.3); Carbon Dioxide 22.3 mmol/L (21.6-31.8); Chloride 100 mmol/L (96-109); Globulin 2.1 g/dL (1.6-3.3); Glucose 153 mg/dL (70-110); Potassium 4.2 mmol/L (3.5-5.5); Sodium 132 mmol/L (135-145); Total Bilirubin 0.4 mg/dL (0.3-1.2); Total Protein 5.4 g/dL (6.2-8.2)
[2023-09-25 09:27] LABS: Basophils # (A) 0.01 X 10*3/uL (0.00-0.10); Basophils % (A) 0.1 %; Eosinophils # (A) 0.09 X 10*3/uL (0.04-0.35); HCT 18.4 % (37.2-46.3); Lymphocytes # (A) 1.56 X 10*3/uL (0.90-5.00); Lymphocytes % (A) 17.2 %; MCH 30.8 pg (27.0-32.0); MCHC 32.6 g/dL (32.0-37.0); MCV 94.4 FL (80.0-97.0); Mean Platelet Volume 11.2 FL (9.5-12.2); Monocytes # (A) 0.69 X 10*3/uL (0.20-1.00); Monocytes % (A) 7.6 %; NRBC Per 100 WBC 0 X 10*3/uL (0.00-0.01); Neutrophils # (A) 6.66 X 10*3/uL (1.80-7.70); Neutrophils % (A) 73.7 %; Platelet Count 219 X 10*3/uL (140-440); RBC 1.95 X 10*6/uL (4.10-5.20); RBC Morphology Normal (Normal); RDW 13.2 % (11.5-14.5); WBC 9.05 X 10*3/uL (4.50-10.00)
--- NOTE | 2023-09-25 13:00 | P.PN ---
Subjective Progress Note Date: 09/25/23 Principal diagnosis: Reason for follow-up is leukocytosis and cholecystitis Patient is a 67-year-old female with multiple comorbidities initially presented to hospital with chest and epigastric area pain patient has been diagnosed with acute cholecystitis in this patient who is status post laparoscopic cholecystectomy On today's evaluation that is 09/25/2023, Patient did have a low-grade fever of 99.2 F this morning patient is currently on 3 L nasal cannula oxygen and denies having any shortness of breath, the patient denies any chest pain or cough, the patient denies any nausea vomiting abdominal pain slightly decreased intensity no diarrhea. Patient white normalized to 9.05 also noticed to have a drop in hemoglobin to 6.0 creatinine is 1.2 Objective - Vital Signs Vital signs: Vital Signs Temp 99.2 F 09/25/23 07:00 Pulse 105 H 09/25/23 07:00 Resp 18 09/25/23 08:00 BP 148/77 09/25/23 07:00 Pulse Ox 97 09/25/23 07:00 FiO2 Intake & Output 09/24/23 09/25/23 09/25/23 18:59 06:59 18:59 Intake Total 816 1830 Output Total 325 2100 Balance 491 -270 Intake: Oral 816 1830 Output: Urine 325 2100 Other: Voiding Method Toilet Bedside Commode Toilet # Voids 1 - Exam GENERAL DESCRIPTION: An elderly female lying in bed in no distress RESPIRATORY SYSTEM: Unlabored breathing , decreased breath sounds at bases HEART: S1 S2 regular rate and rhythm , ABDOMEN: Soft , no tenderness EXTREMITIES: No edema feet - Labs CBC & Chem 7: 09/25/23 04:52 09/25/23 04:52 Labs: Abnormal Lab Results - Last 24 Hours (Table) 09/25/23 09/25/23 09/25/23 Range/Units 04:52 04:52 10:41 RBC 1.95 L (4.10-5.20) X 10*6/uL Hgb 6.0 A* (12.0-15.0) g/dL Hct 18.4 A* (37.2-46.3) % Sodium 132 L (135-145) mmol/L Est GFR (CKD-EPI) 50 L (>=60) Glucose 153 H (70-110) mg/dL Calcium 7.8 L (8.7-10.3) mg/dL AST 58 H (13-35) U/L ALT 84 H (8-44) U/L Total Protein 5.4 L (6.2-8.2) g/dL Albumin 3.3 L (3.8-4.9) g/dL Albumin/Globulin Ratio 1.57 L (1.60-3.17) Ratio Crossmatch See Detail Assessment and Plan (1) Leukocytosis Current Visit: Yes Status: Acute Code(s): D72.829 - ELEVATED WHITE BLOOD CELL COUNT, UNSPECIFIED SNOMED Code(s): 061936949 (2) Acute cholecystitis Current Visit: Yes Status: Acute Code(s): K81.0 - ACUTE CHOLECYSTITIS SNOMED Code(s): 31848870 Plan: 1patient presented to the hospital with epigastric and central chest pain workup now with evidence of acute cholecystitis in this patient who is status post laparoscopic ostectomy patient did have a mildly elevated white count and mild hypotension more likely due to underlying cholecystitis in this patient who is s/p cholecystectomy and need to call for the enteric gram-negative both aerobes and anaerobes no evidence of any infection at any other parts of the body at this point 2blood culture has been obtained and which are currently pending patient white count has normalized also have a drop in hemoglobin CBC has been repeated 3patient to continue with Zosyn 3.375 g every 8 hours and monitor clinical course closely Dictation was produced using [employer] dictation software. please excuse any grammatical, word or spelling errors. Time with Patient: Less than 30
--- NOTE | 2023-09-25 13:59 | P.PN ---
Subjective Progress Note Date: 09/25/23 Kecia Scott, is a 67-year-old female who presented to [facility] emergency room with a chief complaint of chest pain, she was evaluated in the emergency room and admitted to telemetry floor, serial EKG and cardiac enzymes were ordered, shortly after admission patient started having worsening abdominal pain. She was evaluated in the emergency room vital examination on presentation re vealed a temperature of 98.4 pulse 66 respirations 16 blood pressure 163/80 pulse ox 98% on room air Laboratory data reveals a white blood count of 8.6 hemoglobin 11.8 platelet count 261 BUN 13 creatinine 0.8 troponin 0.012 BNP 501 Testing in the emergency room revealed EKG revealed sinus rhythm without acute abnormality, chest x-ray revealed no evidence for acute pulmonary disease Patient was admitted to medical floor for further evaluation and treatment On 09/23/2023 patient is alert and oriented x 3. Patient underwent CT scan of abdomen and pelvis yesterday showing large impacted gallstone at the gallbladder neck. There is [place] cholecystic fluid and wall thickening at the level of the gallbladder neck measuring 4.1 mm acute cholecystitis is not excluded. Plans today for lap polo per surgical services. Patient also evaluated by cardiology services per cardiology patient patient's chest pain is atypical and does not appear to be cardiac. At this time patient reports improvement with her nausea and vomiting denies any chest pain or shortness of breath. Patient denies any urinary burning or frequency. Current vital signs Temp 98.8, heart rate 56, respiratory rate 16, blood pressure 98/64 with a pulse ox of 94% on room air On 09/24/2023 patient is alert and oriented x 3. Status post lap polo. Patient complains of mild abdominal discomfort. Current vital signs Temp 97.5, heart rate 101, respiratory rate 17, blood pressure 105/65 with a pulse ox of 95% on room air. Patient had episode of. Patient had episode of hypotension last night postoperatively patient was given 3 boluses and started on fluid 100 cc/hr. blood pressure improved. Patient denies chest pain or shortness of breath. Patient denies nausea vomiting or diarrhea. Patient denies any urinary burning or frequency. On 09/25/2023 patient was seen and examined on the medical floor she is alert and oriented x 3 in no apparent distress, there is no fever or chills no headache or dizziness no chest pain no shortness of breath no cough no nausea or vomiting no abdominal pain no diarrhea no urinary symptoms, patient had decreased hemoglobin to 6 this morning, 1 unit of red blood cell transfusion was ordered Objective - Vital Signs Vital signs: Vital Signs Temp 99.2 F 09/25/23 07:00 Pulse 105 H 09/25/23 07:00 Resp 18 09/25/23 07:00 BP 148/77 09/25/23 07:00 Pulse Ox 97 09/25/23 07:00 FiO2 Intake & Output 09/24/23 09/25/23 09/25/23 18:59 06:59 18:59 Intake Total 816 1830 Output Total 325 2100 Balance 491 -270 Intake: Oral 816 1830 Output: Urine 325 2100 Other: Voiding Method Toilet Bedside Commode # Voids 1 - Exam In general patient is alert and oriented x 3 in no distress HEENT head normocephalic and atraumatic Neck is supple no JVD no goiter no lymphadenopathy no carotid bruit Chest examination is clear to auscultation no crackles no wheezing Cardiac exam reveals regular heart sounds S1 and S2 no gallops no murmurs Abdomen is soft, with mild diffuse tenderness no organomegaly with normal bowel sounds Extremity exam reveals no edema no cyanosis or clubbing Neurological examination reveals no gross focal deficits - Labs CBC & Chem 7: 09/25/23 04:52 09/25/23 04:52 Labs: Abnormal Lab Results - Last 24 Hours (Table) 09/24/23 09/24/23 09/25/23 Range/Units 06:27 06:27 04:52 WBC 11.81 H (4.50-10.00) X 10*3/uL RBC 2.82 L 1.95 L (4.10-5.20) X 10*6/uL Hgb 8.4 L 6.0 A* (12.0-15.0) g/dL Hct 26.7 L 18.4 A* (37.2-46.3) % MCHC 31.5 L (32.0-37.0) g/dL Immature Gran # 0.05 H (0.00-0.04) X 10*3/uL Neutrophils # 9.96 H (1.80-7.70) X 10*3/uL Eosinophils # 0 L (0.04-0.35) X 10*3/uL Sodium (135-145) mmol/L Carbon Dioxide 19.5 L (21.6-31.8) mmol/L Anion Gap 13.50 H (4.00-12.00) mmol/L Est GFR (CKD-EPI) 46 L (>=60) Glucose 174 H (70-110) mg/dL Calcium 8.3 L (8.7-10.3) mg/dL AST 173 H (13-35) U/L ALT 165 H (8-44) U/L Alkaline Phosphatase 130 H (41-126) U/L Total Protein 5.6 L (6.2-8.2) g/dL Albumin 3.5 L (3.8-4.9) g/dL Albumin/Globulin Ratio (1.60-3.17) Ratio // Range/Units 04:52 WBC (4.50-10.00) X 10*3/uL RBC (4.10-5.20) X 10*6/uL Hgb (12.0-15.0) g/dL Hct (37.2-46.3) % MCHC (32.0-37.0) g/dL Immature Gran # (0.00-0.04) X 10*3/uL Neutrophils # (1.80-7.70) X 10*3/uL Eosinophils # (0.04-0.35) X 10*3/uL Sodium 132 L (135-145) mmol/L Carbon Dioxide (21.6-31.8) mmol/L Anion Gap (4.00-12.00) mmol/L Est GFR (CKD-EPI) 50 L (>=60) Glucose 153 H (70-110) mg/dL Calcium 7.8 L (8.7-10.3) mg/dL AST 58 H (13-35) U/L ALT 84 H (8-44) U/L Alkaline Phosphatase (41-126) U/L Total Protein 5.4 L (6.2-8.2) g/dL Albumin 3.3 L (3.8-4.9) g/dL Albumin/Globulin Ratio 1.57 L (1.60-3.17) Ratio Assessment and Plan Plan: Episode of chest pain. Atypical per cardiology does not appear cardiac Acute cholecystitis with large impacted gallstone at the gallbladder neck. Status post lap polo Postoperative hypotension. Patient given IV boluses and started on normal saline at 100 Underlying history of hypertension Underlying history of hyperlipidemia Underlying history of uld-[id number] diabetes mellitus Underlying history of hypothyroidism Underlying history of peripheral neuropathy Underlying history of migraine headache At this time patient is admitted to telemetry floor Home medications reviewed and reordered, hold metformin for now Serial EKG and cardiac enzymes ordered Cardiology consultation requested For DVT prophylaxis subcu Carleyx Will follow closely
--- NOTE | 2023-09-25 16:06 | P.PN ---
Subjective Progress Note Date: 09/25/23 CHIEF COMPLAINT: Abdominal pain HISTORY OF PRESENT ILLNESS: Patient is postop day #2 status post laparoscopic cholecystectomy. Patient reports pain in the right upper quadrant rib cage area. She is having flatus. No bowel movements. Her urine output has improved. Her hypotension did show some initial improvement with IV fluid bolus. This afternoon blood pressures are on the lower side. She is not as tachycardic. WBC is down from 11.8-9.05 hemoglobin is low at 6.0. LFTs trending down. Patient seen and examined with Dr. Castellanos PHYSICAL EXAM: VITAL SIGNS: Reviewed. GENERAL: no acute distress. ABDOMEN: Soft. Nondistended. Incision sites clean dry and intact NEUROLOGIC: Alert and oriented. Cranial nerves II through XII grossly intact. ASSESSMENT: 1. Acute cholecystitis 2. Cholelithiasis 3. Elevated LFTs 4. Anemia likely dilutional PLAN: -Will transfuse 1 unit of blood -Continue to monitor hemoglobin -Continue to monitor BP -Repeat CBC and LFTs in a.m. -Continue antibiotics -Encourage patient to ambulate -Encourage patient to use incentive spirometer -Continue IV fluids -Continue regular diet -Consult physical therapy -Continue DVT prophylaxis Lovenox Physician Wood Science Professor note has been reviewed by physician. Signing provider agrees with the documented findings, assessment, and plan of care. Objective - Vital Signs Vital signs: Vital Signs Temp 99.2 F 09/25/23 07:00 Pulse 105 H 09/25/23 07:00 Resp 18 09/25/23 07:00 BP 148/77 09/25/23 07:00 Pulse Ox 97 09/25/23 07:00 FiO2 Intake & Output 09/24/23 09/25/23 09/25/23 18:59 06:59 18:59 Intake Total 816 1830 Output Total 325 2100 Balance 491 -270 Intake: Oral 816 1830 Output: Urine 325 2100 Other: Voiding Method Toilet Bedside Commode # Voids 1 - Labs CBC & Chem 7: 09/25/23 04:52 09/25/23 04:52 Labs: Abnormal Lab Results - Last 24 Hours (Table) 09/25/23 09/25/23 Range/Units 04:52 04:52 RBC 1.95 L (4.10-5.20) X 10*6/uL Hgb 6.0 A* (12.0-15.0) g/dL Hct 18.4 A* (37.2-46.3) % Sodium 132 L (135-145) mmol/L Est GFR (CKD-EPI) 50 L (>=60) Glucose 153 H (70-110) mg/dL Calcium 7.8 L (8.7-10.3) mg/dL AST 58 H (13-35) U/L ALT 84 H (8-44) U/L Total Protein 5.4 L (6.2-8.2) g/dL Albumin 3.3 L (3.8-4.9) g/dL Albumin/Globulin Ratio 1.57 L (1.60-3.17) Ratio
[2023-09-25 18:13] LABS: Basophils % (A) 0 %; Eosinophils # (A) 0.2 k/uL (0-0.7); Eosinophils % (A) 3 %; HCT 21.7 % (34.0-46.0); Hypochromasia Slight; Lymphocytes # (A) 1.7 k/uL (1.0-4.8); Lymphocytes % (A) 22 %; MCH 30.5 pg (25.0-35.0); MCV 95.5 fL (80.0-100.0); Mean Platelet Volume 7.6; Monocytes # (A) 0.4 k/uL (0-1.0); Monocytes % (A) 5 %; Neutrophils # (A) 5.3 k/uL (1.3-7.7); Neutrophils % (A) 70 %; Platelet Count 221 k/uL (150-450); RBC 2.28 m/uL (3.80-5.40); RDW 13.6 % (11.5-15.5); WBC 7.6 k/uL (3.8-10.6)
[2023-09-26 08:34] LABS: BUN/Creat Ratio 12.36 Ratio (12.00-20.00); Blood Urea Nitrogen 13.6 mg/dL (9.0-27.0); Chloride 106 mmol/L (96-109); Glucose 116 mg/dL (70-110); Potassium 4.3 mmol/L (3.5-5.5); Sodium 140 mmol/L (135-145)
[2023-09-26 08:35] LABS: ALT 59 U/L (8-44); AST 32 U/L (13-35); Albumin 3.4 g/dL (3.8-4.9); Albumin/Globulin Ratio 1.48 Ratio (1.60-3.17); Alkaline Phosphatase 91 U/L (41-126); Calcium 8.1 mg/dL (8.7-10.3); Carbon Dioxide 24.2 mmol/L (21.6-31.8); Globulin 2.3 g/dL (1.6-3.3); Total Bilirubin 0.4 mg/dL (0.3-1.2); Total Protein 5.7 g/dL (6.2-8.2)
[2023-09-26 08:56] LABS: Basophils # (A) 0.03 X 10*3/uL (0.00-0.10); Basophils % (A) 0.3 %; Eosinophils # (A) 0.32 X 10*3/uL (0.04-0.35); Eosinophils % (A) 3.2 %; HGB 6.9 g/dL (12.0-15.0); Lymphocytes # (A) 2.43 X 10*3/uL (0.90-5.00); Lymphocytes % (A) 24.3 %; MCH 30.3 pg (27.0-32.0); MCHC 31.4 g/dL (32.0-37.0); MCV 96.5 FL (80.0-97.0); Mean Platelet Volume 11.2 FL (9.5-12.2); Monocytes # (A) 0.68 X 10*3/uL (0.20-1.00); Monocytes % (A) 6.8 %; NRBC Per 100 WBC 0 X 10*3/uL (0.00-0.01); Neutrophils # (A) 6.46 X 10*3/uL (1.80-7.70); Neutrophils % (A) 64.6 %; Platelet Count 250 X 10*3/uL (140-440); RBC 2.28 X 10*6/uL (4.10-5.20); RDW 13.8 % (11.5-14.5)
--- NOTE | 2023-09-26 09:12 | CDI ---
Documentation Clarification Form Date: 09/26/2023 From: Evette Mandujano Phone: [phone] Admit Date: 09/21/2023 01:06:00 PM Patient Name: Kecia Scott Visit Number: [id number] Discharge Date: ATTENTION: The Clinical Documentation Specialists (CDI) and [facility] Coding Staff appreciate your assistance in clarifying documentation. Please respond to the clarification below the line at the bottom and electronically sign. The CDI & [facility] Coding staff will review the response and follow-up if needed. Please note: Queries are made part of the Legal Health Record. If you have any questions, please contact the author of this message via ITS. Doctor/Provider: DARCIE Roque PA-C: Post-operative hypotension is documented in the IM progress 09/23. Additional clarification is requested regarding the relationship, if any, that exists between the diagnosis and the procedure. Patients Admitting Diagnosis: Right upper quadrant and epigastric pain Post-Operative Diagnosis: Acute cholecystitis and cholelithiasis Procedure performed: 09/22 Laparoscopic cholecystectomy History/Risk Factors: 67-year-old female with a history of DM2, HTN who presents with right upper quadrant and epigastric pain and found to have cholelithiasis and acute cholecystitis Clinical Indicators: 09/20 Triage VS: 163/80, 98.4, 66, 16, 98% 09/22 Blood pressure: 106/73, 89/63, 91/54, 83/58, 100/70, 109/69, 87/59 09/23 Blood pressure: 115/79, 116/79-lowest BPs 90's over 60's 09/23 IM PN, Subjective: "Patient had episode of hypotension last night postoperatively patient was given 3 boluses and started on fluid 100cc/hr. blood pressure improved." 09/23 Surgery PN, HPI: "Patient has been tachycardic and hypotensive." 09/23 ID consult, Plan: "patient did have a mildly elevated white count and mild hypotension more likely due to underlying cholecystitis in this patient who is s/p cholecystectomy" Treatment: 800cc of IV fluid in OR and 100cc EBL Normal Saline IV 1000cc bolus x 2 on 09/22, x2 on 09/23 and [id number]/hour start 09/22 What relationship, if any, exists between the diagnosis of postoperative hypotension and the procedure: [ ] Post-operative hypotension is a complication of surgical procedure [ ] Post-operative hypotension is an expected outcome of the surgical procedure [ x ] Post-operative hypotension is related to patients co-morbid condition(s) of acute cholecystitis and cholelithiasis and anesthesia for laparoscopic cholecystectomy & not a complication of the procedure [ ] Other please specify ____ [ ] Unable to determine MTDD
--- NOTE | 2023-09-26 09:42 | P.PN ---
Subjective Progress Note Date: 09/26/23 Kecia Scott, is a 67-year-old female who presented to [facility] emergency room with a chief complaint of chest pain, she was evaluated in the emergency room and admitted to telemetry floor, serial EKG and cardiac enzymes were ordered, shortly after admission patient started having worsening abdominal pain. She was evaluated in the emergency room vital examination on presentation re vealed a temperature of 98.4 pulse 66 respirations 16 blood pressure 163/80 pulse ox 98% on room air Laboratory data reveals a white blood count of 8.6 hemoglobin 11.8 platelet count 261 BUN 13 creatinine 0.8 troponin 0.012 BNP 501 Testing in the emergency room revealed EKG revealed sinus rhythm without acute abnormality, chest x-ray revealed no evidence for acute pulmonary disease Patient was admitted to medical floor for further evaluation and treatment On 09/23/2023 patient is alert and oriented x 3. Patient underwent CT scan of abdomen and pelvis yesterday showing large impacted gallstone at the gallbladder neck. There is Archuleta cholecystic fluid and wall thickening at the level of the gallbladder neck measuring 4.1 mm acute cholecystitis is not excluded. Plans today for lap polo per surgical services. Patient also evaluated by cardiology services per cardiology patient patient's chest pain is atypical and does not appear to be cardiac. At this time patient reports improvement with her nausea and vomiting denies any chest pain or shortness of breath. Patient denies any urinary burning or frequency. Current vital signs Temp 98.8, heart rate 56, respiratory rate 16, blood pressure 98/64 with a pulse ox of 94% on room air On 09/24/2023 patient is alert and oriented x 3. Status post lap polo. Patient complains of mild abdominal discomfort. Current vital signs Temp 97.5, heart rate 101, respiratory rate 17, blood pressure 105/65 with a pulse ox of 95% on room air. Patient had episode of. Patient had episode of hypotension last night postoperatively patient was given 3 boluses and started on fluid 100 cc/hr. blood pressure improved. Patient denies chest pain or shortness of breath. Patient denies nausea vomiting or diarrhea. Patient denies any urinary burning or frequency. On 09/25/2023 patient was seen and examined on the medical floor she is alert and oriented x 3 in no apparent distress, there is no fever or chills no headache or dizziness no chest pain no shortness of breath no cough no nausea or vomiting no abdominal pain no diarrhea no urinary symptoms, patient had decreased hemoglobin to 6 this morning, 1 unit of red blood cell transfusion was ordered On 09/26/2023 patient is alert and oriented 3. Patient is currently sitting up in chair per patient reports improvement with abdominal pain.Current vital signs temp 98.4, heart 79, respiratory rate 16, blood pressure 104/70 with pulse ox 96% on 3 L Objective - Vital Signs Vital signs: Vital Signs Temp 98.4 F 09/26/23 07:05 Pulse 79 09/26/23 07:05 Resp 16 09/26/23 07:05 BP 104/70 09/26/23 07:05 Pulse Ox 96 09/26/23 07:05 FiO2 Intake & Output 09/25/23 09/26/23 09/26/23 18:59 06:59 18:59 Intake Total 428 120 100 Output Total 1200 Balance -772 120 100 Intake: Oral 118 120 100 Blood Product 310 Rc As-1 Unit 310 [id number] Output: Urine 1200 Other: Voiding Method Toilet Toilet Toilet # Voids 2 - Exam In general patient is alert and oriented x 3 in no distress HEENT head normocephalic and atraumatic Neck is supple no JVD no goiter no lymphadenopathy no carotid bruit Chest examination is clear to auscultation no crackles no wheezing Cardiac exam reveals regular heart sounds S1 and S2 no gallops no murmurs Abdomen is soft, with mild diffuse tenderness no organomegaly with normal bowel sounds Extremity exam reveals no edema no cyanosis or clubbing Neurological examination reveals no gross focal deficits - Labs CBC & Chem 7: 09/26/23 04:13 09/26/23 04:13 Labs: Abnormal Lab Results - Last 24 Hours (Table) 09/25/23 09/25/23 09/26/23 Range/Units 10:41 17:59 04:13 RBC 2.28 L 2.28 L (3.80-5.40) m/uL Hgb 7.0 L D 6.9 A* (11.4-16.0) gm/dL Hct 21.7 L 22.0 L (34.0-46.0) % MCHC 31.4 L (32.0-37.0) g/dL Immature Gran # 0.08 H (0.00-0.04) X 10*3/uL Est GFR (CKD-EPI) (>=60) Glucose (70-110) mg/dL Calcium (8.7-10.3) mg/dL ALT (8-44) U/L Total Protein (6.2-8.2) g/dL Albumin (3.8-4.9) g/dL Albumin/Globulin Ratio (1.60-3.17) Ratio Crossmatch See Detail 09/26/23 Range/Units 04:13 RBC (3.80-5.40) m/uL Hgb (11.4-16.0) gm/dL Hct (34.0-46.0) % MCHC (32.0-37.0) g/dL Immature Gran # (0.00-0.04) X 10*3/uL Est GFR (CKD-EPI) 56 L (>=60) Glucose 116 H (70-110) mg/dL Calcium 8.1 L (8.7-10.3) mg/dL ALT 59 H (8-44) U/L Total Protein 5.7 L (6.2-8.2) g/dL Albumin 3.4 L (3.8-4.9) g/dL Albumin/Globulin Ratio 1.48 L (1.60-3.17) Ratio Crossmatch Microbiology - Last 24 Hours (Table) 09/24/23 13:24 Blood Culture - Preliminary Blood 09/24/23 13:24 Blood Culture - Preliminary Blood 09/24/23 14:29 Urine Culture - Final Urine,Clean Catch Assessment and Plan Plan: Episode of chest pain. Atypical per cardiology does not appear cardiac Acute cholecystitis with large impacted gallstone at the gallbladder neck. Status post lap polo Postoperative hypotension. Patient given IV boluses and started on normal saline at 100 anemia status post blood transfusion Underlying history of hypertension Underlying history of hyperlipidemia Underlying history of [id number]-ekmpkmezt diabetes mellitus Underlying history of hypothyroidism Underlying history of peripheral neuropathy Underlying history of migraine headache At this time patient is admitted to telemetry floor Home medications reviewed and reordered, hold metformin for now Serial EKG and cardiac enzymes ordered Cardiology consultation requested For DVT prophylaxis subcu Lovenox Will follow closely
[2023-09-26 12:13] VITALS: BMI 41.3
--- NOTE | 2023-09-26 12:44 | P.PN ---
Subjective Progress Note Date: 09/26/23 CHIEF COMPLAINT: Abdominal pain HISTORY OF PRESENT ILLNESS: Patient is postop day #3 status post laparoscopic cholecystectomy. patient continues to have right upper quadrant pain in the rib cage area. She is sitting in bedside chair. She reports overall feeling better. She did receive a unit of blood yesterday hemoglobin went from 6-7 and is now at 6.9 she is receiving a blood transfusion currently. Afebrile. Tachycardia resolved.BP 101/56 WBC 10. Patient denies any dizziness or lightheadedness. Patient is tolerating diet. Has any flatus. Patient seen and examined with Dr. Castellanos PHYSICAL EXAM: VITAL SIGNS: Reviewed. GENERAL: no acute distress. ABDOMEN: Soft. Nondistended. Incision sites clean dry and intact. very minimal bruisingincision sites NEUROLOGIC: Alert and oriented. Cranial nerves II through XII grossly intact. ASSESSMENT: 1. Acute cholecystitis 2. Cholelithiasis 3. Elevated LFTs trending down 4. Anemia likely dilutional PLAN: -medicine service has ordered 1 unit of blood. An additional 1 unit of blood has been ordered -repeat hemoglobin tomorrow -anticipate possible discharge from surgical standpoint -Continue antibiotics during hospitalization -Encourage patient to ambulate -Encourage patient to use incentive spirometer -Continue regular diet -Continue DVT prophylaxis Lovenox Physician Tour Escort note has been reviewed by physician. Signing provider agrees with the documented findings, assessment, and plan of care. Objective - Vital Signs Vital signs: Vital Signs Temp 98.1 F 09/26/23 10:56 Pulse 72 09/26/23 11:16 Resp 18 09/26/23 11:16 BP 101/56 09/26/23 11:16 Pulse Ox 100 09/26/23 10:56 FiO2 Intake & Output 09/25/23 09/26/23 09/26/23 18:59 06:59 18:59 Intake Total 428 120 100 Output Total 1200 Balance -772 120 100 Intake: Oral 118 120 100 Blood Product 310 0 Rc As-1 Unit 310 0 [id number] Rc Pheresis As-3 Unit 0 [id number] Output: Urine 1200 Other: Voiding Method Toilet Toilet Toilet # Voids 2 - Labs CBC & Chem 7: 09/26/23 04:13 09/26/23 04:13 Labs: Abnormal Lab Results - Last 24 Hours (Table) 09/25/23 09/25/23 09/26/23 Range/Units 10:41 17:59 04:13 RBC 2.28 L 2.28 L (3.80-5.40) m/uL Hgb 7.0 L D 6.9 A* (11.4-16.0) gm/dL Hct 21.7 L 22.0 L (34.0-46.0) % MCHC 31.4 L (32.0-37.0) g/dL Immature Gran # 0.08 H (0.00-0.04) X 10*3/uL Est GFR (CKD-EPI) (>=60) Glucose (70-110) mg/dL Calcium (8.7-10.3) mg/dL ALT (8-44) U/L Total Protein (6.2-8.2) g/dL Albumin (3.8-4.9) g/dL Albumin/Globulin Ratio (1.60-3.17) Ratio Crossmatch See Detail 09/26/23 Range/Units 04:13 RBC (3.80-5.40) m/uL Hgb (11.4-16.0) gm/dL Hct (34.0-46.0) % MCHC (32.0-37.0) g/dL Immature Gran # (0.00-0.04) X 10*3/uL Est GFR (CKD-EPI) 56 L (>=60) Glucose 116 H (70-110) mg/dL Calcium 8.1 L (8.7-10.3) mg/dL ALT 59 H (8-44) U/L Total Protein 5.7 L (6.2-8.2) g/dL Albumin 3.4 L (3.8-4.9) g/dL Albumin/Globulin Ratio 1.48 L (1.60-3.17) Ratio Crossmatch Microbiology - Last 24 Hours (Table) 09/24/23 13:24 Blood Culture - Preliminary Blood 09/24/23 13:24 Blood Culture - Preliminary Blood 09/24/23 14:29 Urine Culture - Final Urine,Clean Catch
--- NOTE | 2023-09-26 16:08 | P.PN ---
Subjective Progress Note Date: 09/26/23 Principal diagnosis: Reason for follow-up is leukocytosis and cholecystitis Patient is a 67-year-old female with multiple comorbidities initially presented to hospital with chest and epigastric area pain patient has been diagnosed with acute cholecystitis in this patient who is status post laparoscopic cholecystectomy On today's evaluation that is 09/26/2023, patient has been afebrile, patient is breathing comfortably and is currently on room air, patient denies having any significant cough no chest pain shortness of breath, patient did have some nausea but no vomiting abdominal pain has decreased in intensity no diarrhea. Patient white count is 10.0, creatinine is 1.1 blood culture negative Objective - Vital Signs Vital signs: Vital Signs Temp 98.1 F 09/26/23 10:56 Pulse 82 09/26/23 12:57 Resp 18 09/26/23 12:57 BP 119/67 09/26/23 12:57 Pulse Ox 100 09/26/23 10:56 FiO2 Intake & Output 09/25/23 09/26/23 09/26/23 18:59 06:59 18:59 Intake Total 428 120 382 Output Total 1200 Balance -772 120 382 Weight 105.687 kg Intake: Oral 118 120 100 Blood Product 310 282 Rc As-1 Unit 310 0 [id number] Rc Pheresis As-3 Unit 282 [id number] Output: Urine 1200 Other: Voiding Method Toilet Toilet Toilet # Voids 2 - Exam GENERAL DESCRIPTION: An elderly female lying in bed in no distress RESPIRATORY SYSTEM: Unlabored breathing , decreased breath sounds at bases HEART: S1 S2 regular rate and rhythm , ABDOMEN: Soft , no tenderness EXTREMITIES: No edema feet - Labs CBC & Chem 7: 09/26/23 04:13 09/26/23 04:13 Labs: Abnormal Lab Results - Last 24 Hours (Table) 09/25/23 09/25/23 09/26/23 Range/Units 10:41 17:59 04:13 RBC 2.28 L 2.28 L (3.80-5.40) m/uL Hgb 7.0 L D 6.9 A* (11.4-16.0) gm/dL Hct 21.7 L 22.0 L (34.0-46.0) % MCHC 31.4 L (32.0-37.0) g/dL Immature Gran # 0.08 H (0.00-0.04) X 10*3/uL Est GFR (CKD-EPI) (>=60) Glucose (70-110) mg/dL Calcium (8.7-10.3) mg/dL ALT (8-44) U/L Total Protein (6.2-8.2) g/dL Albumin (3.8-4.9) g/dL Albumin/Globulin Ratio (1.60-3.17) Ratio Crossmatch See Detail 09/26/23 Range/Units 04:13 RBC (3.80-5.40) m/uL Hgb (11.4-16.0) gm/dL Hct (34.0-46.0) % MCHC (32.0-37.0) g/dL Immature Gran # (0.00-0.04) X 10*3/uL Est GFR (CKD-EPI) 56 L (>=60) Glucose 116 H (70-110) mg/dL Calcium 8.1 L (8.7-10.3) mg/dL ALT 59 H (8-44) U/L Total Protein 5.7 L (6.2-8.2) g/dL Albumin 3.4 L (3.8-4.9) g/dL Albumin/Globulin Ratio 1.48 L (1.60-3.17) Ratio Crossmatch Microbiology - Last 24 Hours (Table) 09/24/23 13:24 Blood Culture - Preliminary Blood 09/24/23 13:24 Blood Culture - Preliminary Blood 09/24/23 14:29 Urine Culture - Final Urine,Clean Catch Assessment and Plan (1) Leukocytosis Current Visit: Yes Status: Acute Code(s): D72.829 - ELEVATED WHITE BLOOD CELL COUNT, UNSPECIFIED SNOMED Code(s): 525876058 (2) Acute cholecystitis Current Visit: Yes Status: Acute Code(s): K81.0 - ACUTE CHOLECYSTITIS SNOMED Code(s): 56163628 Plan: 1patient presented to the hospital with epigastric and central chest pain workup now with evidence of acute cholecystitis in this patient who is status post laparoscopic ostectomy patient did have a mildly elevated white count and mild hypotension more likely due to underlying cholecystitis in this patient who is s/p cholecystectomy and need to call for the enteric gram-negative both aerobes and anaerobes no evidence of any infection at any other parts of the body at this point 2blood culture has been obtained and which are currently pending patient white count has normalized also have a drop in hemoglobin CBC has been repeated 3patient is afebrile the patient white count is normal, to continue with Zosyn 3.375 g every 8 hours and monitor clinical course closely Dictation was produced using [employer] dictation software. please excuse any grammatical, word or spelling errors. Time with Patient: Less than 30
[2023-09-26 20:30] VITALS: RESP 16
[2023-09-26] MEDS: LACTULOSE 20 GM/30 ML CUP PO ONE (22:29)
[2023-09-27 08:21] VITALS: BP 123/70; PULSE 65; TEMP 98.2
[2023-09-27 09:39] LABS: Basophils # (A) 0.04 X 10*3/uL (0.00-0.10); Basophils % (A) 0.6 %; Eosinophils # (A) 0.24 X 10*3/uL (0.04-0.35); Eosinophils % (A) 3.4 %; HCT 26.1 % (37.2-46.3); HGB 8.3 g/dL (12.0-15.0); Lymphocytes # (A) 1.86 X 10*3/uL (0.90-5.00); Lymphocytes % (A) 26.3 %; MCH 29.5 pg (27.0-32.0); MCHC 31.8 g/dL (32.0-37.0); MCV 92.9 FL (80.0-97.0); Mean Platelet Volume 10.9 FL (9.5-12.2); Monocytes # (A) 0.54 X 10*3/uL (0.20-1.00); Monocytes % (A) 7.6 %; NRBC Per 100 WBC 0 X 10*3/uL (0.00-0.01); Neutrophils # (A) 4.34 X 10*3/uL (1.80-7.70); Neutrophils % (A) 61.3 %; Platelet Count 234 X 10*3/uL (140-440); RBC 2.81 X 10*6/uL (4.10-5.20); RDW 15.5 % (11.5-14.5); WBC 7.08 X 10*3/uL (4.50-10.00)
[2023-09-27 12:14] LABS: ALT 41 U/L (8-44); AST 20 U/L (13-35); Albumin 3.2 g/dL (3.8-4.9); Albumin/Globulin Ratio 1.45 Ratio (1.60-3.17); Alkaline Phosphatase 83 U/L (41-126); BUN/Creat Ratio 12.11 Ratio (12.00-20.00); Blood Urea Nitrogen 10.9 mg/dL (9.0-27.0); Calcium 8.1 mg/dL (8.7-10.3); Carbon Dioxide 22.2 mmol/L (21.6-31.8); Chloride 108 mmol/L (96-109); Globulin 2.2 g/dL (1.6-3.3); Glucose 103 mg/dL (70-110); Potassium 3.9 mmol/L (3.5-5.5); Sodium 140 mmol/L (135-145); Total Bilirubin 0.5 mg/dL (0.3-1.2); Total Protein 5.4 g/dL (6.2-8.2)
--- NOTE | 2023-09-27 12:14 | P.DS ---
Providers Date of admission: 09/21/23 13:06 Expected date of discharge: 09/27/23 Attending physician: Carlos Gonzalez Consults: 09/22/23 13:45 Consult Physician Urgent Consulting Provider: Stewart Castellanos Consult Reason/Comments: DR CASTELLANOS Do you want consulting provider notified?: Yes 09/24/23 13:03 Consult Physician Routine Consulting Provider: Willie Macario Consult Reason/Comments: leukocytosis, hypotension Do you want consulting provider notified?: Yes Primary care physician: Carlosrfaat Gonzalez [facility] Course: Diagnosis on discharge: Episode of chest pain. Atypical per cardiology does not appear cardiac Acute cholecystitis with large impacted gallstone at the gallbladder neck. Status post lap polo Postoperative hypotension. Patient given IV boluses and started on normal saline at 100 anemia status post blood transfusion Underlying history of hypertension Underlying history of hyperlipidemia Underlying history of enu-lftkodg-zujrteair diabetes mellitus Underlying history of hypothyroidism Underlying history of peripheral neuropathy Underlying history of migraine headache Hospital course: Kecia Scott, is a 67-year-old female who presented to [facility] emergency room with a chief complaint of chest pain, she was evaluated in the emergency room and admitted to telemetry floor, serial EKG and cardiac enzymes were ordered, shortly after admission patient started having worsening abdominal pain. She was evaluated in the emergency room vital examination on presentation revealed a temperature of 98.4 pulse 66 respirations 16 blood pressure 163/80 pulse ox 98% on room air Laboratory data reveals a white blood count of 8.6 hemoglobin 11.8 platelet count 261 BUN 13 creatinine 0.8 troponin 0.012 BNP 501 Testing in the emergency room revealed EKG revealed sinus rhythm without acute abnormality, chest x-ray revealed no evidence for acute pulmonary disease Patient was admitted to medical floor for further evaluation and treatment On 09/23/2023 patient is alert and oriented x 3. Patient underwent CT scan of abdomen and pelvis yesterday showing large impacted gallstone at the gallbladder neck. There is [place] cholecystic fluid and wall thickening at the level of the gallbladder neck measuring 4.1 mm acute cholecystitis is not excluded. Plans today for lap polo per surgical services. Patient also evaluated by cardiology services per cardiology patient patient's chest pain is atypical and does not appear to be cardiac. At this time patient reports improvement with her nausea and vomiting denies any chest pain or shortness of breath. Patient denies any urinary burning or frequency. Current vital signs Temp 98.8, heart rate 56, respiratory rate 16, blood pressure 98/64 with a pulse ox of 94% on room air On 09/24/2023 patient is alert and oriented x 3. Status post lap polo. Patient complains of mild abdominal discomfort. Current vital signs Temp 97.5, heart rate 101, respiratory rate 17, blood pressure 105/65 with a pulse ox of 95% on room air. Patient had episode of. Patient had episode of hypotension last night postoperatively patient was given 3 boluses and started on fluid 100 cc/hr. blood pressure improved. Patient denies chest pain or shortness of breath. Patient denies nausea vomiting or diarrhea. Patient denies any urinary burning or frequency. On 09/25/2023 patient was seen and examined on the medical floor she is alert and oriented x 3 in no apparent distress, there is no fever or chills no headache or dizziness no chest pain no shortness of breath no cough no nausea or vomiting no abdominal pain no diarrhea no urinary symptoms, patient had decreased hemoglobin to 6 this morning, 1 unit of red blood cell transfusion was ordered On 09/26/2023 patient is alert and oriented 3. Patient is currently sitting up in chair per patient reports improvement with abdominal pain.Current vital signs temp 98.4, heart 79, respiratory rate 16, blood pressure 104/70 with pulse ox 96% on 3 L On 09/27/2023 patient was seen and examined on the medical floor she is alert and oriented x 3 in no apparent distress there is no fever or chills no headache or dizziness no chest pain no shortness of breath no cough no nausea or vomiting no abdominal pain no diarrhea and no urinary symptoms. Patient is feeling well and wants to go home Case was discussed with Dr. Macario infectious disease and he cleared her to go home on a course of oral Augmentin hemoglobin is stable today at 8.3 she will be followed in the office on Friday Patient Condition at Discharge: Fair Plan - Discharge Summary Discharge Rx Participant: No New Discharge Prescriptions: New HYDROcodone/APAP 5-325MG [[place] 5-325] 1 tab PO Q6HR PRN 3 Days #12 tab PRN Reason: Pain Amoxic-Pot Clav 875-125Mg [Augmentin 875-125] 1 tab PO BID #14 tab Continue Losartan [Cozaar] 50 mg PO DAILY metFORMIN HCL [Glucophage] 1,000 mg PO BID Simvastatin [Zocor] 20 mg PO DAILY Gabapentin 600 mg PO TID Aspirin [Adult Low Dose Aspirin EC] 81 mg PO DAILY Pioglitazone [Actos] 30 mg PO DAILY Furosemide [Lasix] 20 mg PO DAILY Meloxicam [Mobic] 15 mg PO DAILY HYDROcodone/APAP 5-325MG [[place] 5-325] 1 tab PO HS DULoxetine HCL [Cymbalta] 60 mg PO DAILY tiZANidine [Zanaflex] 4 mg PO BID PRN PRN Reason: Muscle Pain Levothyroxine Sodium [Synthroid] 112 mcg PO DAILY SUMAtriptan succinate [Imitrex] 50 mg PO BID PRN PRN Reason: Migraine Headache HYDROcodone/APAP 5-325MG [[place] 5-325] 1 tab PO DAILY PRN PRN Reason: Pain Meclizine [Antivert] 25 mg PO TID PRN PRN Reason: Vertigo Cholecalciferol (Vitamin D3) [Vitamin D3 (50 Mcg = 2000 Iu)] 50 mcg PO DAILY Discharge Medication List Aspirin [Adult Low Dose Aspirin EC] 81 mg PO DAILY 05/09/16 [History] Gabapentin 600 mg PO TID 05/09/16 [History] Losartan [Cozaar] 50 mg PO DAILY 05/09/16 [History] Simvastatin [Zocor] 20 mg PO DAILY 05/09/16 [History] metFORMIN HCL [Glucophage] 1,000 mg PO BID 05/09/16 [History] Furosemide [Lasix] 20 mg PO DAILY 07/02/23 [History] Levothyroxine Sodium [Synthroid] 112 mcg PO DAILY 07/02/23 [History] Meloxicam [Mobic] 15 mg PO DAILY 07/02/23 [History] Pioglitazone [Actos] 30 mg PO DAILY 07/02/23 [History] Cholecalciferol (Vitamin D3) [Vitamin D3 (50 Mcg = 2000 Iu)] 50 mcg PO DAILY 09/21/23 [History] DULoxetine HCL [Cymbalta] 60 mg PO DAILY 09/21/23 [History] HYDROcodone/APAP 5-325MG [[place] 5-325] 1 tab PO DAILY PRN 09/21/23 [History] HYDROcodone/APAP 5-325MG [[place] 5-325] 1 tab PO HS 09/21/23 [History] Meclizine [Antivert] 25 mg PO TID PRN 09/21/23 [History] SUMAtriptan succinate [Imitrex] 50 mg PO BID PRN 09/21/23 [History] tiZANidine [Zanaflex] 4 mg PO BID PRN 09/21/23 [History] HYDROcodone/APAP 5-325MG [[place] 5-325] 1 tab PO Q6HR PRN 3 Days #12 tab 09/26/23 [Rx] Amoxic-Pot Clav 875-125Mg [Augmentin 875-125] 1 tab PO BID #14 tab 09/27/23 [Rx] Follow up Appointment(s)/Referral(s): Carlos Gonzalez MD [Primary Care Provider] - 1-2 days Stewart Castellanos MD [STAFF PHYSICIAN] - 1 Week
--- NOTE | 2023-09-27 13:57 | P.PN ---
Subjective Progress Note Date: 09/27/23 Principal diagnosis: Reason for follow-up is leukocytosis and cholecystitis Patient is a 67-year-old female with multiple comorbidities initially presented to hospital with chest and epigastric area pain patient has been diagnosed with acute cholecystitis in this patient who is status post laparoscopic cholecystectomy On today's evaluation that is 09/27/2023, Patient is afebrile this morning patient denies having any chest pain shortness of breath or cough, the patient is breathing comfortably and currently on room air, patient denies any abdominal pain no diarrhea no nausea no vomiting, patient mention feeling better wants to go home. Patient white count 7.08 hemoglobin is 8.3 creatinine 0.9 blood culture negative Objective - Vital Signs Vital signs: Vital Signs Temp 98.2 F 09/27/23 07:40 Pulse 65 09/27/23 07:40 Resp 16 09/27/23 07:40 BP 123/70 09/27/23 07:40 Pulse Ox 97 09/27/23 07:40 FiO2 Intake & Output 09/26/23 09/27/23 09/27/23 18:59 06:59 18:59 Intake Total 1402 Balance 1402 Weight 105.687 kg Intake: Oral 810 Blood Product 592 Rc As-1 Unit 310 [id number] Rc As-1 Unit 0 [id number] Rc Pheresis As-3 Unit 282 [id number] Other: Voiding Method Toilet Toilet Toilet # Voids 2 2 - Exam GENERAL DESCRIPTION: An elderly female lying in bed in no distress RESPIRATORY SYSTEM: Unlabored breathing , decreased breath sounds at bases HEART: S1 S2 regular rate and rhythm , ABDOMEN: Soft , no tenderness EXTREMITIES: No edema feet - Labs CBC & Chem 7: 09/27/23 04:13 09/27/23 04:13 Labs: Abnormal Lab Results - Last 24 Hours (Table) 09/25/23 09/27/23 Range/Units 10:41 04:13 RBC 2.81 L (4.10-5.20) X 10*6/uL Hgb 8.3 L (12.0-15.0) g/dL Hct 26.1 L (37.2-46.3) % MCHC 31.8 L (32.0-37.0) g/dL RDW 15.5 H (11.5-14.5) % Immature Gran # 0.06 H (0.00-0.04) X 10*3/uL Crossmatch See Detail Microbiology - Last 24 Hours (Table) 09/24/23 13:24 Blood Culture - Preliminary Blood 09/24/23 13:24 Blood Culture - Preliminary Blood Assessment and Plan (1) Leukocytosis Current Visit: Yes Status: Acute Code(s): D72.829 - ELEVATED WHITE BLOOD CELL COUNT, UNSPECIFIED SNOMED Code(s): 339974480 (2) Acute cholecystitis Current Visit: Yes Status: Acute Code(s): K81.0 - ACUTE CHOLECYSTITIS SNOMED Code(s): 32092072 Plan: 1patient presented to the hospital with epigastric and central chest pain workup now with evidence of acute cholecystitis in this patient who is status post laparoscopic ostectomy patient did have a mildly elevated white count and mild hypotension more likely due to underlying cholecystitis in this patient who is s/p cholecystectomy and need to call for the enteric gram-negative both aerobes and anaerobes no evidence of any infection at any other parts of the body at this point 2blood culture has been negative and the patient white count is normal 3patient is afebrile and feeling better wants to go home we will suggest a 7- day course of oral Augmentin on discharge discussed with admitting physician prescription sent Dictation was produced using [employer] dictation software. please excuse any grammatical, word or spelling errors. Time with Patient: Less than 30
--- NOTE | 2023-09-27 15:52 | P.PN ---
Progress Note - Text Progress Note Date: 09/27/23 CHIEF COMPLAINT: Abdominal pain HISTORY OF PRESENT ILLNESS: NAEO. Patient responded to transfusion PHYSICAL EXAM: VITAL SIGNS: Reviewed. GENERAL: no acute distress. ABDOMEN: Soft. Nondistended. Incision sites clean dry and intact. very minimal bruisingincision sites NEUROLOGIC: Alert and oriented. Cranial nerves II through XII grossly intact. ASSESSMENT: 1. Acute cholecystitis 2. Cholelithiasis 3. Elevated LFTs trending down 4. Anemia likely dilutional PLAN: -hgb stable s/p transfusion -ok for discharge from surgery standpoint
== END 2023-09-27 16:25 | disposition home or self-care (01) | DRG 418 ==
LOC: EC 11:46 → 6NMEDSUR 13:05 → OBSVTOIN 13:06 → 6NMEDSUR 17:03
PROVIDERS: ADMIT Internal Medicine; ATTEND Internal Medicine
PROC: 0FT44ZZ Resection of Gallbladder, Percutaneous Endoscopic Approach (ICD-10-PCS; principal; 2023-09-23 10:30)
DX: K80.00 Calculus of gallbladder with acute cholecystitis without obstruction (principal); Z68.41 Body mass index [BMI] 40.0-44.9, adult; D64.9 Anemia, unspecified; E03.9 Hypothyroidism, unspecified; E11.41 Type 2 diabetes mellitus with diabetic mononeuropathy; E11.69 Type 2 diabetes mellitus with other specified complication; E66.9 Obesity, unspecified; E78.5 Hyperlipidemia, unspecified; I10 Essential (primary) hypertension; I95.9 Hypotension, unspecified; Z79.1 Long term (current) use of non-steroidal anti-inflammatories (NSAID); Z79.82 Long term (current) use of aspirin; Z79.84 Long term (current) use of oral hypoglycemic drugs; Z79.890 Hormone replacement therapy; Z79.899 Other long term (current) drug therapy; Z88.8 Allergy status to other drugs, medicaments and biological substances
CPT/HCPCS: 36415; 71046; 74177; 76700; 76857; 80053; 80061; 82150; 83690; 83735; 83880; 84484; 85025; 85610; 85730; 86850; 86900; 86901; 86920; 87040; 87086; 88304; 93005; 93306; 96365; 96366; 96375; 99285

== ENCOUNTER 2024-03-31 06:22 | Day surgery (SDC) | payer MEDICARE ==
[2024-03-29 13:27] VITALS: BMI 47.0
[~2024-03-31 06:22] MED LIST changes: +LACTATED RINGERS 1,000 ML IV SCH; +LIDOCAINE 1% (10MG/ML) FOR IV START INTRADERMA PRN; -Pre Op ABX Message 1 EACH MISC MISCELLANE ONE
[2024-03-31] MEDS: LACTATED RINGERS 1,000 ML IV ONE (07:04)
[2024-03-31 07:06] LABS: Glucose,Whole Blood 106 mg/dL (70-110)
[2024-03-31 07:07] VITALS: TEMP 97
[2024-03-31] MEDS ORDERED: PROPOFOL 10 MG/ML 20 ML VIAL IV ONE (07:20)
[2024-03-31] MEDS ORDERED: LIDOCAINE 2% (PF) 20 MG/ML 5 ML VIAL ONE (07:20)
--- NOTE | 2024-03-31 07:46 | P.PCN ---
Date of Procedure: 03/31/24 Procedure(s) Performed: Brief history: Patient is a pleasant 68-year-old pleasant white female scheduled for an elective upper endoscopy as well as colonoscopy as a part of evaluation of iron deficiency anemia. Patient states that she was diagnosed with severe anemia 4 months ago and needed blood transfusion. Since then has been on iron supplements daily. She denies any abdominal pain, nausea vomiting or diarrhea. Procedure performed: Esophagogastroduodenoscopy with biopsy Colonoscopy Preoperative diagnosis: Severe iron deficiency anemia Anesthesia: MAC Procedure: After informed consent was obtained from the patient was brought into the endoscopy unit and IV sedation was administered by anesthesia under continuous monitoring. Initially upper endoscopy was done. The Olympus GF 160 video endoscope was inserted inserted into the mouth and esophagus intubated without any difficulty and was gradually advanced into the stomach and duodenum and carefully examined. The bulb and second part of the duodenum appeared normal. Biopsies were done from the duodenum rule out celiac disease. The scope was then withdrawn into the stomach adequately insufflated with air and upon careful examination the antrum and body, cardia and fundus appeared normal. The scope was then withdrawn into the esophagus. The GE junction was located at 40 cm to the incisors. It appeared regular with no erythema erosions or ulcerations. Rest of the esophagus appeared normal. Patient tolerated the procedure well. At this time the patient continued to remain sedation. Initial digital rectal examination was normal. Olympus CF 160 video colonoscope was then inserted into the rectum and gradually advanced to the cecum without any difficulty. Careful examination was performed as the scope was gradually being withdrawn. The prep was excellent. The cecum, ascending colon, transverse colon, descending colon, sigmoid colon and rectum appeared normal. Sigmoid diverticulosis. Retroflexion was performed in the rectum and no lesions were noted. Patient tolerated the procedure well. Impression: 1. Upper endoscopy revealed mild antral gastritis but no evidence of esophagitis or peptic ulcer disease 2. Colonoscopy revealed scattered sigmoid diverticulosis but no evidence of colitis or colorectal neoplasia Recommendations: Findings of this examination were discussed with the patient as well as her family. She was advised to follow-up with the biopsy results. Recommended repeat screening colonoscopy in 10 years.
[2024-03-31 07:52] VITALS: RESP 16
[2024-03-31 08:32] VITALS: BP 109/72; PULSE 57
== END 2024-03-31 08:33 | disposition home or self-care (01) ==
LOC: ORWHC2ENDO 06:22
PROVIDERS: ATTEND Internal Medicine Gastroenterology
DX: K29.50 Unspecified chronic gastritis without bleeding (principal); K57.30 Diverticulosis of large intestine without perforation or abscess without bleeding; D50.9 Iron deficiency anemia, unspecified; I10 Essential (primary) hypertension; E78.5 Hyperlipidemia, unspecified; E11.9 Type 2 diabetes mellitus without complications; E07.9 Disorder of thyroid, unspecified; M54.50 Low back pain, unspecified; G60.9 Hereditary and idiopathic neuropathy, unspecified; E66.01 Morbid (severe) obesity due to excess calories; Z68.42 Body mass index [BMI] 45.0-49.9, adult; Z91.018 Allergy to other foods; Z89.231 Acquired absence of right shoulder; Z79.82 Long term (current) use of aspirin; Z79.890 Hormone replacement therapy; Z79.899 Other long term (current) drug therapy
CPT/HCPCS: 45378; 43239; J2704; J2003; 88305